=== PATIENT | female | born 1955 | race Asian ===

== ENCOUNTER 2018-12-10 13:00 | Inpatient (IN) | payer MEDICARE ==
--- NOTE | 2018-12-10 13:09 | Emergency Department Report ---
Blank Doc - Documentation Documentation: This is a 63-year-old female that chest pain in the left side. Patient stated has history of breast cancer and had chemo and radiation to the left breast. Patient denies any radiation of pain. Denies URI symptoms. Exam: Left breast tissue erythema with tenderness noted. This initial assessment diagnostic orders/clinical plan/treatment(s) is/are subject to change based on patient's health status, clinical progression and re- assessment by fellow clinical providers in the ED. Further treatment and workup at subsequent clinical providers discretion. Patient/guardians urged not to elope from ED s their condition may be serious if not clinically assessed and managed. Initial orders include: 1-EKG 2- Labs 3- Chest xray
[2018-12-10 13:28] LABS: Basophils % (Auto) 0.6 % (0.0-1.8); Eosinophils # (Auto) 0.1 K/mm3 (0.0-0.4); Eosinophils % (Auto) 1.1 % (0.0-4.3); Hematocrit 45.3 % (30.3-42.9); Hemoglobin 15.2 gm/dl (10.1-14.3); Lymphocytes # (Auto) 2.5 K/mm3 (1.2-5.4); Lymphocytes % (Auto) 40.5 % (13.4-35.0); Mean Corpuscular HGB Conc 34 % (30-34); Mean Corpuscular Volume 96 fl (79-97); Monocytes # (Auto) 0.3 K/mm3 (0.0-0.8); Monocytes % (Auto) 5.4 % (0.0-7.3); Platelet Count 274 K/mm3 (140-440); Red Blood Count 4.72 M/mm3 (3.65-5.03); Red Cell Distribution Width 13.2 % (13.2-15.2)
[2018-12-10 13:38] LABS: INR 0.83 (0.87-1.13)
[2018-12-10 13:39] LABS: Partial Thromboplastin Time 22.9 Sec. (24.2-36.6)
[2018-12-10 13:51] LABS: Alanine Aminotransferase 13 units/L (7-56); Albumin 4.2 g/dL (3.9-5); BUN/Creatinine Ratio 17; Blood Urea Nitrogen 12 mg/dL (7-17); Calcium 9.9 mg/dL (8.4-10.2); Hemolysis Index 23
--- NOTE | 2018-12-10 14:05 | XRay Report ---
FINAL REPORT EXAM: XRAY CHEST 2 VIEWS HISTORY: CP TECHNIQUE: Frontal and lateral chest radiographs. PRIORS: None. FINDINGS: Atherosclerotic calculi are seen in the thoracic aorta. The cardiomediastinal silhouette is normal. No focal consolidation. No pleural effusion. No pneumothorax. No acute osseous abnormality. IMPRESSION: No acute cardiopulmonary process.
--- NOTE | 2018-12-10 18:02 | Emergency Department Report ---
ED Chest Pain HPI - General Chief Complaint: Chest Pain Stated Complaint: CHEST PAIN Time Seen by Provider: 12/10/18 13:03 Source: patient Mode of arrival: Ambulatory Limitations: No Limitations - History of Present Illness MD Complaint: chest pain -: Gradual Onset: during rest Pain Location: left chest Pain Radiation: none Severity: severe Severity scale (0 -10): 10 Quality: sharp Consistency: constant Improves With: nothing Worsens With: nothing re: denies: nausea, vomting Other Symptoms: denies: cough Treatments Prior to Arrival: none Aspirin use within the Past 7 Days: (0) No - Related Data On Oral Contraceptives: No Home Medications Medication Instructions Recorded Confirmed Last Taken No Known Home Medications [No 12/11/18 12/11/18 Unknown Reported Home Medications] Allergies Allergy/AdvReac Type Severity Reaction Status Date / Time No Known Allergies Allergy Verified 12/10/18 13:01 Heart Score - HEART Score History: Slightly suspicious EKG: Normal Age: 45-65 Risk factors: 1-2 risk factors Troponin: < normal limit HEART Score: 2 - Critical Actions Critical Actions: 0-3 pts:0.9-1.7%risk of adverse cardiac event.Candidate for discharge ED Review of Systems ROS: Stated complaint: CHEST PAIN Other details as noted in HPI Comment: All other systems reviewed and negative Constitutional: denies: chills, fever Eyes: denies: eye pain, eye discharge, vision change ENT: denies: ear pain, throat pain Respiratory: denies: cough, shortness of breath, wheezing Cardiovascular: chest pain. denies: palpitations Endocrine: no symptoms reported Gastrointestinal: denies: abdominal pain, nausea, diarrhea Genitourinary: denies: urgency, dysuria, discharge Musculoskeletal: denies: back pain, joint swelling, arthralgia Skin: denies: rash, lesions Neurological: denies: headache, weakness, paresthesias Psychiatric: denies: anxiety, depression Hematological/Lymphatic: denies: easy bleeding, easy bruising ED Past Medical Hx - Past Medical History Hx Diabetes: Yes Additional medical history: left breast lumpectomy with chemo and radiation-2000 - Surgical History Additional Surgical History: left breast,bladder - Social History Smoking Status: Current Every Day Smoker Substance Use Type: None - Medications Home Medications: Home Medications Medication Instructions Recorded Confirmed Last Taken Type No Known Home Medications [No 12/11/18 12/11/18 Unknown History Reported Home Medications] ED Physical Exam - General Limitations: No Limitations General appearance: alert, in no apparent distress - Head Head exam: Present: atraumatic, normocephalic - Eye Eye exam: Present: normal appearance, PERRL, EOMI Pupils: Present: normal accommodation - ENT ENT exam: Present: normal exam, normal orophraynx, mucous membranes moist - Neck Neck exam: Present: normal inspection, full ROM. Absent: tenderness - Respiratory Respiratory exam: Present: normal lung sounds bilaterally. Absent: respiratory distress, wheezes - Cardiovascular Cardiovascular Exam: Present: regular rate, normal rhythm, other (Left breast mass with orange skin appearance and redness which is indurated and tender to palpation.). Absent: systolic murmur, diastolic murmur, rubs, gallop - GI/Abdominal GI/Abdominal exam: Present: soft, normal bowel sounds. Absent: distended, tenderness, guarding - Extremities Exam Extremities exam: Present: normal inspection, full ROM, normal capillary refill - Back Exam Back exam: Present: normal inspection, full ROM. Absent: tenderness - Neurological Exam Neurological exam: Present: alert, oriented X3, CN II-XII intact - Psychiatric Psychiatric exam: Present: normal affect, normal mood - Skin Skin exam: Present: warm, dry, intact, normal color. Absent: rash ED Course Vital Signs 12/10/18 12/10/18 12/10/18 13:08 18:18 18:22 Temperature 98 F Pulse Rate 111 H 91 H Respiratory 20 22 18 Rate Blood Pressure 185/74 O2 Sat by Pulse 94 96 Oximetry 12/10/18 12/10/18 12/10/18 18:30 19:40 21:02 Temperature Pulse Rate 80 Respiratory 15 16 Rate Blood Pressure 118/65 118/65 O2 Sat by Pulse 98 98 98 Oximetry 12/10/18 12/10/18 12/10/18 21:16 21:20 21:30 Temperature Pulse Rate 69 68 61 Respiratory 14 10 L 15 Rate Blood Pressure 146/52 146/52 146/52 O2 Sat by Pulse 97 96 96 Oximetry 12/10/18 12/10/18 21:40 21:56 Temperature Pulse Rate 79 Respiratory 14 Rate Blood Pressure 143/57 O2 Sat by Pulse 96 97 Oximetry - Consultations Consultation #1: 12/11/18 02:14 Dr Bouchra Pierce to admit patient for further management. JUSTIN score - Justin Score Age > 65: (0) No Aspirin use within the Past 7 Days: (0) No 3 or more CAD Risk Factors: (0) No 2 or more Angina events in past 24 hrs: (0) No Known CAD with more than 50% Stenosis: (0) No Elevated Cardiac Markers: (0) No ST Deviation Greater than 0.5mm: (0) No JUSTIN Score: 0 ED Medical Decision Making - Lab Data Result diagrams: 12/10/18 21:08 12/10/18 21:08 Lab Results 12/10/18 12/10/18 12/10/18 Range/Units 13:14 13:14 13:14 WBC 6.3 (4.5-11.0) K/mm3 RBC 4.72 (3.65-5.03) M/mm3 Hgb 15.2 H (10.1-14.3) gm/dl Hct 45.3 H (30.3-42.9) % MCV 96 (79-97) fl MCH 32 (28-32) pg MCHC 34 (30-34) % RDW 13.2 (13.2-15.2) % Plt Count 274 (140-440) K/mm3 Lymph % (Auto) 40.5 H (13.4-35.0) % [place] % (Auto) 5.4 (0.0-7.3) % Eos % (Auto) 1.1 (0.0-4.3) % Baso % (Auto) 0.6 (0.0-1.8) % Lymph # 2.5 (1.2-5.4) K/mm3 [place] # 0.3 (0.0-0.8) K/mm3 Eos # 0.1 (0.0-0.4) K/mm3 Baso # 0.0 (0.0-0.1) K/mm3 Seg Neutrophils % 52.4 (40.0-70.0) % Seg Neutrophils # 3.3 (1.8-7.7) K/mm3 PT 11.8 L (12.2-14.9) Sec. INR 0.83 L (0.87-1.13) APTT 22.9 L (24.2-36.6) Sec. Sodium 136 L (137-145) mmol/L Potassium 4.4 (3.6-5.0) mmol/L Chloride 97.6 L (98-107) mmol/L Carbon Dioxide 25 (22-30) mmol/L Anion Gap 18 mmol/L BUN 12 (7-17) mg/dL Creatinine 0.7 (0.7-1.2) mg/dL Estimated GFR > 60 ml/min BUN/Creatinine Ratio 17 % Glucose 412 H (65-100) mg/dL Calcium 9.9 (8.4-10.2) mg/dL Total Bilirubin 0.30 (0.1-1.2) mg/dL AST 11 (5-40) units/L ALT 13 (7-56) units/L Alkaline Phosphatase 67 (35-129) units/L Troponin T < 0.010 (0.00-0.029) ng/mL Total Protein 7.1 (6.3-8.2) g/dL Albumin 4.2 (3.9-5) g/dL Albumin/Globulin Ratio 1.4 % 12/10/18 Range/Units 16:06 WBC (4.5-11.0) K/mm3 RBC (3.65-5.03) M/mm3 Hgb (10.1-14.3) gm/dl Hct (30.3-42.9) % MCV (79-97) fl MCH (28-32) pg MCHC (30-34) % RDW (13.2-15.2) % Plt Count (140-440) K/mm3 Lymph % (Auto) (13.4-35.0) % [place] % (Auto) (0.0-7.3) % Eos % (Auto) (0.0-4.3) % Baso % (Auto) (0.0-1.8) % Lymph # (1.2-5.4) K/mm3 [place] # (0.0-0.8) K/mm3 Eos # (0.0-0.4) K/mm3 Baso # (0.0-0.1) K/mm3 Seg Neutrophils % (40.0-70.0) % Seg Neutrophils # (1.8-7.7) K/mm3 PT (12.2-14.9) Sec. INR (0.87-1.13) APTT (24.2-36.6) Sec. Sodium (137-145) mmol/L Potassium (3.6-5.0) mmol/L Chloride (98-107) mmol/L Carbon Dioxide (22-30) mmol/L Anion Gap mmol/L BUN (7-17) mg/dL Creatinine (0.7-1.2) mg/dL Estimated GFR ml/min BUN/Creatinine Ratio % Glucose (65-100) mg/dL Calcium (8.4-10.2) mg/dL Total Bilirubin (0.1-1.2) mg/dL AST (5-40) units/L ALT (7-56) units/L Alkaline Phosphatase (35-129) units/L Troponin T < 0.010 (0.00-0.029) ng/mL Total Protein (6.3-8.2) g/dL Albumin (3.9-5) g/dL Albumin/Globulin Ratio % - EKG Data -: EKG Interpreted by Co EKG shows normal: sinus rhythm Rate: tachycardia (101) - EKG Data When compared to previous EKG there are: previous EKG unavailable 12/10/18 18:28 No STEMI. - Radiology Data Radiology results: report reviewed, image reviewed CXR is negative. CTA chest with contrast showed No PE, abnormal left breast density suspicious for neoplasm. - Medical Decision Making Chest Pain. Possible Left Breast Cancer. Critical care attestation.: If time is entered above; I have spent that time in minutes in the direct care of this critically ill patient, excluding procedure time. ED Disposition Clinical Impression: Breast mass, left Chest pain Qualifiers: Chest pain type: unspecified Qualified Code(s): R07.9 - Chest pain, unspecified Uncontrolled diabetes mellitus Qualifiers: Diabetes mellitus type: type 2 Glycemic state: with hyperglycemia Qualified Code(s): E11.65 - Type 2 diabetes mellitus with hyperglycemia Disposition: DC-09 OP ADMIT IP TO THIS HOSP Is pt being admited?: Yes Does the pt Need Aspirin: Yes Condition: Stable Time of Disposition: 21:10
[2018-12-10] MEDS ORDERED: NACL 0.9% 1000 ML 1,000 ML IV ONE ×2 (18:04)
[2018-12-10] MEDS ORDERED: HumuLIN R IV ONE (18:04)
[2018-12-10] MEDS ORDERED: ZOFRAN IV ONE (18:05)
[2018-12-10] MEDS ORDERED: MORPHINE ONE (18:14)
[2018-12-10] MEDS ORDERED: MORPHINE IV ONE (18:15)
[2018-12-10] MEDS ORDERED: BABY ASPIRIN PO ONE (19:10)
--- NOTE | 2018-12-10 19:13 | Cat Scan Report ---
FINAL REPORT PROCEDURE: CT ANGIO CHEST TECHNIQUE: Computerized tomographic angiography of the chest was performed during the IV injection o f iodinated nonionic contrast including image processing. The image data was postprocessed using 2-di mensional multiplanar reformatted (MPR) and 3-dimensional (MIP and/or volume rendered) techniques. HISTORY: Chest pain COMPARISON: No prior studies are available for comparison. FINDINGS: Pulmonary outflow tract, right and left main pulmonary arteries and their proximal branches: Clear, n o filling defects seen to suggest pulmonary embolus. Pericardium: No evidence of pericardial effusion. Thoracic aorta: No evidence of aneurysmal dilatation or dissection. Coronary arteries: Are partially calcified indicating atherosclerotic disease. Mediastinum and hilar regions: Nonspecific subcentimeter lymph nodes are visualized. No pathologicall y enlarged lymph nodes or masses are identified. Lung [place]: There is minimal dependent atelectasis. Lungs otherwise are clear. Upper abdomen: No acute or focal abnormality is seeen. Other: Abnormal noncalcified soft tissue density is visualized in the left breast. This has irregular margins and extends over approximately 5.8 x 3.4 centimeters. Skin thickening and subcutaneous edema is visualized. IMPRESSION: Abnormal density visualized in the left breast as described. Malignancy in the left breast needs to b e excluded. Mastoiditis could present this manner. Correlation with mammography, clinical presentatio n and physical exam is recommended. No evidence of pulmonary embolus. Atherosclerosis coronary arteries.
[2018-12-10] MEDS ORDERED: HABITROL TD ONE (20:30)
[2018-12-10] MEDS ORDERED: SODIUM CHLORIDE FLUSH SYRINGE 10 ML IV PRN ×2 (20:47)
[2018-12-10] MEDS ORDERED: NITROSTAT SL PRN (20:47)
[2018-12-10] MEDS ORDERED: ZOFRAN IV PRN (20:47)
[2018-12-10 21:24] LABS: Basophils # (Auto) 0.1 K/mm3 (0.0-0.1); Basophils % (Auto) 0.9 % (0.0-1.8); Eosinophils # (Auto) 0.1 K/mm3 (0.0-0.4); Eosinophils % (Auto) 2.6 % (0.0-4.3); Hematocrit 42.2 % (30.3-42.9); Lymphocytes % (Auto) 51.5 % (13.4-35.0); Mean Corpuscular HGB Conc 33 % (30-34); Mean Corpuscular Volume 97 fl (79-97); Monocytes # (Auto) 0.4 K/mm3 (0.0-0.8); Monocytes % (Auto) 6.4 % (0.0-7.3); Platelet Count 284 K/mm3 (140-440); Red Blood Count 4.37 M/mm3 (3.65-5.03); Red Cell Distribution Width 13.4 % (13.2-15.2)
[2018-12-10 21:34] LABS: BUN/Creatinine Ratio 20; Blood Urea Nitrogen 16 mg/dL (7-17); Calcium 9.3 mg/dL (8.4-10.2); Chol/HDL Ratio 6.18 %; Hemolysis Index 7
[2018-12-10] MEDS: SODIUM CHLORIDE FLUSH SYRINGE 10 ML IV SCH (22:34)
[2018-12-10] MEDS ORDERED: AMBIEN PO PRN (23:13)
--- NOTE | 2018-12-10 23:21 | History and Physical Report ---
<BIJAN NEVILLE - Last Filed: 12/11/18 03:17> History of Present Illness Date of examination: 12/10/18 Date of admission: 12/10/18 20:47 Chief complaint: Left breast CA, chest pain History of present illness: Pt is a 63 year old female with past medical history of uncontrolled DM type II, hypertension, left breast cancer status post radiation/chemotherapy diagnosed more than 5 years ago. Patient presents to the ER complaining of left-sided chest pain, she described the pain as a nagging pain in her left breast, the pain radiates to the left arm at times, causing numbness and tingling, she denies any shortness of breath, denies palpitation, denies diaphoresis, denies prior chest pain. Patient states that she was diagnosed with breast cancer more than 5 years ago, she completed chemo and radiation therapy and decided to go "natural", she had not seen an oncologist nor had she is seen in primary care physician for more than 5 years. Patient states that she has been using natural medicine to take care of her cancer and her diabetes, she had not take any medications. In the ER her blood sugar was greater than 300, she had a CT scan of the chest which showed abnormal density in the left breast r/o malignancy or mastoiditis, EKG showed no STEMI criteria, cardiac enzymes were negative, patient is admitted to rule out ACS and for further evaluation of her left breast. Past History Past Medical History: cancer, diabetes Past Surgical History: No surgical history, Other Social history: Lives alone, smoking (1 pack daily), alcohol abuse (occasionally) Family history: no significant family history Medications and Allergies Allergies Allergy/AdvReac Type Severity Reaction Status Date / Time No Known Allergies Allergy Verified 12/10/18 13:01 Home Medications Medication Instructions Recorded Confirmed Last Taken Type AtorvaSTATin [Lipitor] 40 mg PO QHS #30 tab 12/11/18 Unknown Rx Clindamycin [Clindamycin CAP] 300 mg PO Q8H #30 cap 12/11/18 Unknown Rx Famotidine [Pepcid] 20 mg PO BID #30 tablet 12/11/18 Unknown Rx RX: Nicotine [Habitrol] 14 mg TD DAILY #30 patch 12/11/18 Unknown Rx Active Meds: Active Medications Acetaminophen (Tylenol) 650 mg PO Q4H PRN PRN Reason: Pain MILD(1-3)/Fever >100.5/[facility] Aspirin (Ecotrin) 325 mg PO QDAY [facility] Nitroglycerin (Nitrostat) 0.4 mg SL Q5M PRN PRN Reason: Chest Pain Ondansetron HCl (Zofran) 4 mg IV Q8H PRN PRN Reason: Nausea And Vomiting Sodium Chloride (Sodium Chloride Flush Syringe 10 Ml) 10 ml IV BID [facility] Last Admin: 12/10/18 22:34 Dose: 10 ml Documented by: Sodium Chloride (Sodium Chloride Flush Syringe 10 Ml) 10 ml IV PRN PRN PRN Reason: LINE FLUSH Review of Systems Breasts: deferred Cardiovascular: chest pain Exam - Constitutional Vitals: Temp Pulse Resp BP Pulse Ox 98 F 69 14 146/52 97 12/10/18 13:08 12/10/18 21:16 12/10/18 21:16 12/10/18 21:16 12/10/18 21:56 General appearance: Present: no acute distress - EENT Eyes: Present: EOM intact ENT: hearing intact - Neck Neck: Present: supple, normal ROM - Respiratory Respiratory effort: normal Respiratory: bilateral: CTA - Cardiovascular Rhythm: regular Heart Sounds: Present: S1 & S2 - Extremities Extremities: no ischemia Peripheral Pulses: within normal limits - Abdominal General gastrointestinal: Present: deferred Female genitourinary: Present: deferred - Rectal Rectal Exam: deferred - Integumentary Integumentary: Present: clear, warm - Psychiatric Psychiatric: appropriate mood/affect, cooperative - Neurologic Neurologic: moves all extremities Results - Labs CBC & Chem 7: 12/10/18 21:08 12/10/18 21:08 Labs: Laboratory Last Values WBC 5.7 K/mm3 (4.5-11.0) 12/10/18 21:08 RBC 4.37 M/mm3 (3.65-5.03) 12/10/18 21:08 Hgb 14.0 gm/dl (10.1-14.3) 12/10/18 21:08 Hct 42.2 % (30.3-42.9) 12/10/18 21:08 MCV 97 fl (79-97) 12/10/18 21:08 MCH 32 pg (28-32) 12/10/18 21:08 MCHC 33 % (30-34) 12/10/18 21:08 RDW 13.4 % (13.2-15.2) 12/10/18 21:08 Plt Count 284 K/mm3 (140-440) 12/10/18 21:08 Lymph % (Auto) 51.5 % (13.4-35.0) H 12/10/18 21:08 [place] % (Auto) 6.4 % (0.0-7.3) 12/10/18 21:08 Eos % (Auto) 2.6 % (0.0-4.3) 12/10/18 21:08 Baso % (Auto) 0.9 % (0.0-1.8) 12/10/18 21:08 Lymph # 3.0 K/mm3 (1.2-5.4) 12/10/18 21:08 [place] # 0.4 K/mm3 (0.0-0.8) 12/10/18 21:08 Eos # 0.1 K/mm3 (0.0-0.4) 12/10/18 21:08 Baso # 0.1 K/mm3 (0.0-0.1) 12/10/18 21:08 Seg Neutrophils % 38.6 % (40.0-70.0) L 12/10/18 21:08 Seg Neutrophils # 2.2 K/mm3 (1.8-7.7) 12/10/18 21:08 PT 11.8 Sec. (12.2-14.9) L 12/10/18 13:14 INR 0.83 (0.87-1.13) L 12/10/18 13:14 APTT 22.9 Sec. (24.2-36.6) L 12/10/18 13:14 VBG pH 7.413 (7.320-7.420) 12/10/18 18:28 Sodium 135 mmol/L (137-145) L 12/10/18 21:08 Potassium 4.2 mmol/L (3.6-5.0) 12/10/18 21:08 Chloride 101.6 mmol/L (98-107) 12/10/18 21:08 Carbon Dioxide 21 mmol/L (22-30) L 12/10/18 21:08 Anion Gap 17 mmol/L 12/10/18 21:08 BUN 16 mg/dL (7-17) 12/10/18 21:08 Creatinine 0.8 mg/dL (0.7-1.2) 12/10/18 21:08 Estimated GFR > 60 ml/min 12/10/18 21:08 BUN/Creatinine Ratio 20 % 12/10/18 21:08 Glucose 274 mg/dL (65-100) H 12/10/18 21:08 Calcium 9.3 mg/dL (8.4-10.2) 12/10/18 21:08 Total Bilirubin 0.30 mg/dL (0.1-1.2) 12/10/18 13:14 AST 11 units/L (5-40) 12/10/18 13:14 ALT 13 units/L (7-56) 12/10/18 13:14 Alkaline Phosphatase 67 units/L (35-129) 12/10/18 13:14 Troponin T < 0.010 ng/mL (0.00-0.029) 12/10/18 16:06 Total Protein 7.1 g/dL (6.3-8.2) 12/10/18 13:14 Albumin 4.2 g/dL (3.9-5) 12/10/18 13:14 Albumin/Globulin Ratio 1.4 % 12/10/18 13:14 Triglycerides 155 mg/dL (2-149) H 12/10/18 21:08 Cholesterol 235 mg/dL (50-199) H 12/10/18 21:08 LDL Cholesterol Direct 190 mg/dL (50-130) H 12/10/18 21:08 HDL Cholesterol 38 mg/dL (40-59) L 12/10/18 21:08 Cholesterol/HDL Ratio 6.18 % 12/10/18 21:08 Assessment and Plan Assessment and plan: 1. Chest pain rule out ACS 2. History of Left breast malignancy (abnormal density, r/o recurrence) 3. Uncontrolled DM type II 4. Hypercholesterolemia 5. Hypertension 6. Obesity Plan: Patient is admitted to [facility] telemetry for chest pain Rule out recurrence of left breast cancer Cardiac enzymes every 6 hours 2 more Repeat EKG with chest pain Monitor cardiac rhythm/vital signs Glycemic management with insulin per sliding scale Start statin for hypercholesterolemia Consult oncology for management of left breast CA Stress test in the a.m. Further plan per hospital course Plan discussed with patient, voiced understanding Patient's condition and plan of care discussed with Dr. Pierce Advance Directives: Yes VTE prophylaxis?: Mechanical Plan of care discussed with patient/family: Yes <LIZET PIERCE - Last Filed: 12/21/18 06:51> History of Present Illness Date of admission: 12/10/18 20:47 Medications and Allergies Active Meds: Active Medications Acetaminophen (Tylenol) 650 mg PO Q4H PRN PRN Reason: Pain MILD(1-3)/Fever >100.5/[facility] Last Admin: 12/10/18 23:45 Dose: 650 mg Documented by: Aspirin (Ecotrin) 325 mg PO QDAY [facility] Atorvastatin Calcium (Lipitor) 20 mg PO QHS [facility] Nitroglycerin (Nitrostat) 0.4 mg SL Q5M PRN PRN Reason: Chest Pain Ondansetron HCl (Zofran) 4 mg IV Q8H PRN PRN Reason: Nausea And Vomiting Sodium Chloride (Sodium Chloride Flush Syringe 10 Ml) 10 ml IV BID [facility] Last Admin: 12/10/18 22:34 Dose: 10 ml Documented by: Sodium Chloride (Sodium Chloride Flush Syringe 10 Ml) 10 ml IV PRN PRN PRN Reason: LINE FLUSH Zolpidem Tartrate (Ambien) 5 mg PO QHS PRN PRN Reason: Sleep Last Admin: 12/10/18 23:45 Dose: 5 mg Documented by: Exam - Constitutional Vitals: Temp Pulse Resp BP Pulse Ox 98.0 F 82 20 136/61 98 12/10/18 22:53 12/10/18 22:53 12/10/18 22:53 12/10/18 22:53 12/10/18 22:53 Results - Labs CBC & Chem 7: 12/11/18 06:09 12/11/18 06:09 Labs: Laboratory Last Values WBC 5.7 K/mm3 (4.5-11.0) 12/10/18 21:08 RBC 4.37 M/mm3 (3.65-5.03) 12/10/18 21:08 Hgb 14.0 gm/dl (10.1-14.3) 12/10/18 21:08 Hct 42.2 % (30.3-42.9) 12/10/18 21:08 MCV 97 fl (79-97) 12/10/18 21:08 MCH 32 pg (28-32) 12/10/18 21:08 MCHC 33 % (30-34) 12/10/18 21:08 RDW 13.4 % (13.2-15.2) 12/10/18 21:08 Plt Count 284 K/mm3 (140-440) 12/10/18 21:08 Lymph % (Auto) 51.5 % (13.4-35.0) H 12/10/18 21:08 [place] % (Auto) 6.4 % (0.0-7.3) 12/10/18 21:08 Eos % (Auto) 2.6 % (0.0-4.3) 12/10/18 21:08 Baso % (Auto) 0.9 % (0.0-1.8) 12/10/18 21:08 Lymph # 3.0 K/mm3 (1.2-5.4) 12/10/18 21:08 [place] # 0.4 K/mm3 (0.0-0.8) 12/10/18 21:08 Eos # 0.1 K/mm3 (0.0-0.4) 12/10/18 21:08 Baso # 0.1 K/mm3 (0.0-0.1) 12/10/18 21:08 Seg Neutrophils % 38.6 % (40.0-70.0) L 12/10/18 21:08 Seg Neutrophils # 2.2 K/mm3 (1.8-7.7) 12/10/18 21:08 PT 11.8 Sec. (12.2-14.9) L 12/10/18 13:14 INR 0.83 (0.87-1.13) L 12/10/18 13:14 APTT 22.9 Sec. (24.2-36.6) L 12/10/18 13:14 VBG pH 7.413 (7.320-7.420) 12/10/18 18:28 Sodium 135 mmol/L (137-145) L 12/10/18 21:08 Potassium 4.2 mmol/L (3.6-5.0) 12/10/18 21:08 Chloride 101.6 mmol/L (98-107) 12/10/18 21:08 Carbon Dioxide 21 mmol/L (22-30) L 12/10/18 21:08 Anion Gap 17 mmol/L 12/10/18 21:08 BUN 16 mg/dL (7-17) 12/10/18 21:08 Creatinine 0.8 mg/dL (0.7-1.2) 12/10/18 21:08 Estimated GFR > 60 ml/min 12/10/18 21:08 BUN/Creatinine Ratio 20 % 12/10/18 21:08 Glucose 274 mg/dL (65-100) H 12/10/18 21:08 Calcium 9.3 mg/dL (8.4-10.2) 12/10/18 21:08 Total Bilirubin 0.30 mg/dL (0.1-1.2) 12/10/18 13:14 AST 11 units/L (5-40) 12/10/18 13:14 ALT 13 units/L (7-56) 12/10/18 13:14 Alkaline Phosphatase 67 units/L (35-129) 12/10/18 13:14 Troponin T < 0.010 ng/mL (0.00-0.029) 12/10/18 16:06 Total Protein 7.1 g/dL (6.3-8.2) 12/10/18 13:14 Albumin 4.2 g/dL (3.9-5) 12/10/18 13:14 Albumin/Globulin Ratio 1.4 % 12/10/18 13:14 Triglycerides 155 mg/dL (2-149) H 12/10/18 21:08 Cholesterol 235 mg/dL (50-199) H 12/10/18 21:08 LDL Cholesterol Direct 190 mg/dL (50-130) H 12/10/18 21:08 HDL Cholesterol 38 mg/dL (40-59) L 12/10/18 21:08 Cholesterol/HDL Ratio 6.18 % 12/10/18 21:08 Assessment and Plan Assessment and plan: 63-year-old woman with a history of diabetes, breast cancer, status post lump ectomy, radiation, chemotherapy plus emergency room with complaints of left- sided chest pain. Patient states she knows changes in the skin of her breast in October of last year however she has not followed up with her primary care and oncologist in the last 4 years. Physical exam is significant for thickened skin of the left breast, a lump from 12 to 2:00 counterclockwise. Chest pain is most likely secondary to the mass in her breast. consult oncology, IV morphine, check cardiac enzymes. Patient seen and examined with nurse practitioner
[2018-12-10] MEDS: TYLENOL PO PRN (23:45)
[2018-12-11 06:28] LABS: Hematocrit 40.6 % (30.3-42.9); Hemoglobin 13.4 gm/dl (10.1-14.3); Mean Corpuscular HGB Conc 33 % (30-34); Mean Corpuscular Volume 96 fl (79-97); Platelet Count 251 K/mm3 (140-440); Red Blood Count 4.24 M/mm3 (3.65-5.03); Red Cell Distribution Width 12.9 % (13.2-15.2)
[2018-12-11 06:44] LABS: BUN/Creatinine Ratio 20; Blood Urea Nitrogen 12 mg/dL (7-17); Calcium 9.1 mg/dL (8.4-10.2); Hemolysis Index 9
[2018-12-11] MEDS: TYLENOL PO PRN (07:08)
[2018-12-11 07:41] LABS: Anisocytosis 1+; Total Cells Counted 100
[2018-12-11] MEDS ORDERED: LEXISCAN IV ONE ×2 (09:31→09:32)
[2018-12-11] MEDS ORDERED: ECOTRIN PO SCH (10:00)
--- NOTE | 2018-12-11 10:21 | Progress Note ---
History Interval history: Patient went for stress test Hospitalist Physical - Constitutional Vitals: Temp Pulse Resp BP Pulse Ox 98.0 F 82 20 136/61 98 12/10/18 22:53 12/10/18 22:53 12/10/18 22:53 12/10/18 22:53 12/10/18 22:53 General appearance: Present: no acute distress Results - Labs CBC & Chem 7: 12/11/18 06:09 12/11/18 06:09 Labs: Laboratory Last Values WBC 4.9 K/mm3 (4.5-11.0) 12/11/18 06:09 RBC 4.24 M/mm3 (3.65-5.03) 12/11/18 06:09 Hgb 13.4 gm/dl (10.1-14.3) 12/11/18 06:09 Hct 40.6 % (30.3-42.9) 12/11/18 06:09 MCV 96 fl (79-97) 12/11/18 06:09 MCH 32 pg (28-32) 12/11/18 06:09 MCHC 33 % (30-34) 12/11/18 06:09 RDW 12.9 % (13.2-15.2) L 12/11/18 06:09 Plt Count 251 K/mm3 (140-440) 12/11/18 06:09 Lymph % (Auto) Performance Consultant 12/11/18 06:09 Noble % (Auto) 6.4 % (0.0-7.3) 12/10/18 21:08 Eos % (Auto) 2.6 % (0.0-4.3) 12/10/18 21:08 Baso % (Auto) 0.9 % (0.0-1.8) 12/10/18 21:08 Lymph # 3.0 K/mm3 (1.2-5.4) 12/10/18 21:08 Noble # 0.4 K/mm3 (0.0-0.8) 12/10/18 21:08 Eos # 0.1 K/mm3 (0.0-0.4) 12/10/18 21:08 Baso # 0.1 K/mm3 (0.0-0.1) 12/10/18 21:08 Add Manual Diff Complete 12/11/18 06:09 Total Counted 100 12/11/18 06:09 Seg Neutrophils % Performance Consultant 12/11/18 06:09 Seg Neuts % (Manual) 31.0 % (40.0-70.0) L 12/11/18 06:09 Band Neutrophils % 0 % 12/11/18 06:09 Lymphocytes % (Manual) 53.0 % (13.4-35.0) H 12/11/18 06:09 Reactive Lymphs % (Man) 0 % 12/11/18 06:09 Monocytes % (Manual) 11.0 % (0.0-7.3) H 12/11/18 06:09 Eosinophils % (Manual) 4.0 % (0.0-4.3) 12/11/18 06:09 Basophils % (Manual) 1.0 % (0.0-1.8) 12/11/18 06:09 Metamyelocytes % 0 % 12/11/18 06:09 Myelocytes % 0 % 12/11/18 06:09 Promyelocytes % 0 % 12/11/18 06:09 Blast Cells % 0 % 12/11/18 06:09 Nucleated RBC % Not Reportable 12/11/18 06:09 Seg Neutrophils # 2.2 K/mm3 (1.8-7.7) 12/10/18 21:08 Seg Neutrophils # Man 1.5 K/mm3 (1.8-7.7) L 12/11/18 06:09 Band Neutrophils # 0.0 K/mm3 12/11/18 06:09 Lymphocytes # (Manual) 2.6 K/mm3 (1.2-5.4) 12/11/18 06:09 Abs React Lymphs (Man) 0.0 K/mm3 12/11/18 06:09 Monocytes # (Manual) 0.5 K/mm3 (0.0-0.8) 12/11/18 06:09 Eosinophils # (Manual) 0.2 K/mm3 (0.0-0.4) 12/11/18 06:09 Basophils # (Manual) 0.0 K/mm3 (0.0-0.1) 12/11/18 06:09 Metamyelocytes # 0.0 K/mm3 12/11/18 06:09 Myelocytes # 0.0 K/mm3 12/11/18 06:09 Promyelocytes # 0.0 K/mm3 12/11/18 06:09 Blast Cells # 0.0 K/mm3 12/11/18 06:09 WBC Morphology Not Reportable 12/11/18 06:09 Hypersegmented Neuts Not Reportable 12/11/18 06:09 Hyposegmented Neuts Not Reportable 12/11/18 06:09 Hypogranular Neuts Not Reportable 12/11/18 06:09 Smudge Cells Not Reportable 12/11/18 06:09 Toxic Granulation Not Reportable 12/11/18 06:09 Toxic Vacuolation Not Reportable 12/11/18 06:09 Dohle Bodies Not Reportable 12/11/18 06:09 Pelger-Huet Anomaly Not Reportable 12/11/18 06:09 Kimberley Rods Not Reportable 12/11/18 06:09 Platelet Estimate Appears normal 12/11/18 06:09 Clumped Platelets Not Reportable 12/11/18 06:09 Plt Clumps, EDTA Not Reportable 12/11/18 06:09 Large Platelets Not Reportable 12/11/18 06:09 Giant Platelets Not Reportable 12/11/18 06:09 Platelet Satelliting Not Reportable 12/11/18 06:09 Plt Morphology Comment Not Reportable 12/11/18 06:09 RBC Morphology Not Reportable 12/11/18 06:09 Dimorphic RBCs Not Reportable 12/11/18 06:09 Polychromasia Not Reportable 12/11/18 06:09 Hypochromasia Not Reportable 12/11/18 06:09 Poikilocytosis Not Reportable 12/11/18 06:09 Anisocytosis 1+ 12/11/18 06:09 Microcytosis Not Reportable 12/11/18 06:09 Macrocytosis Not Reportable 12/11/18 06:09 Spherocytes Not Reportable 12/11/18 06:09 Pappenheimer Bodies Not Reportable 12/11/18 06:09 Sickle Cells Not Reportable 12/11/18 06:09 Target Cells Not Reportable 12/11/18 06:09 Tear Drop Cells Not Reportable 12/11/18 06:09 Ovalocytes Not Reportable 12/11/18 06:09 Helmet Cells Not Reportable 12/11/18 06:09 [place] Bodies Not Reportable 12/11/18 06:09 [place] Rings Not Reportable 12/11/18 06:09 [place] Cells Not Reportable 12/11/18 06:09 Bite Cells Not Reportable 12/11/18 06:09 Crenated Cell Not Reportable 12/11/18 06:09 Elliptocytes Not Reportable 12/11/18 06:09 Acanthocytes (Spur) Not Reportable 12/11/18 06:09 Rouleaux Not Reportable 12/11/18 06:09 Hemoglobin C Crystals Not Reportable 12/11/18 06:09 Schistocytes Not Reportable 12/11/18 06:09 Malaria parasites Not Reportable 12/11/18 06:09 [place] Bodies Not Reportable 12/11/18 06:09 Hem Pathologist Commnt No 12/11/18 06:09 PT 11.8 Sec. (12.2-14.9) L 12/10/18 13:14 INR 0.83 (0.87-1.13) L 12/10/18 13:14 APTT 22.9 Sec. (24.2-36.6) L 12/10/18 13:14 VBG pH 7.413 (7.320-7.420) 12/10/18 18:28 Sodium 138 mmol/L (137-145) 12/11/18 06:09 Potassium 4.2 mmol/L (3.6-5.0) 12/11/18 06:09 Chloride 103.6 mmol/L (98-107) 12/11/18 06:09 Carbon Dioxide 26 mmol/L (22-30) 12/11/18 06:09 Anion Gap 13 mmol/L 12/11/18 06:09 BUN 12 mg/dL (7-17) 12/11/18 06:09 Creatinine 0.6 mg/dL (0.7-1.2) L 12/11/18 06:09 Estimated GFR > 60 ml/min 12/11/18 06:09 BUN/Creatinine Ratio 20 % 12/11/18 06:09 Glucose 271 mg/dL (65-100) H 12/11/18 06:09 Calcium 9.1 mg/dL (8.4-10.2) 12/11/18 06:09 Total Bilirubin 0.30 mg/dL (0.1-1.2) 12/10/18 13:14 AST 11 units/L (5-40) 12/10/18 13:14 ALT 13 units/L (7-56) 12/10/18 13:14 Alkaline Phosphatase 67 units/L (35-129) 12/10/18 13:14 Troponin T < 0.010 ng/mL (0.00-0.029) 12/11/18 06:09 Total Protein 7.1 g/dL (6.3-8.2) 12/10/18 13:14 Albumin 4.2 g/dL (3.9-5) 12/10/18 13:14 Albumin/Globulin Ratio 1.4 % 12/10/18 13:14 Triglycerides 155 mg/dL (2-149) H 12/10/18 21:08 Cholesterol 235 mg/dL (50-199) H 12/10/18 21:08 LDL Cholesterol Direct 190 mg/dL (50-130) H 12/10/18 21:08 HDL Cholesterol 38 mg/dL (40-59) L 12/10/18 21:08 Cholesterol/HDL Ratio 6.18 % 12/10/18 21:08
[2018-12-11] MEDS: SODIUM CHLORIDE FLUSH SYRINGE 10 ML IV SCH (11:56)
[2018-12-11 12:45] VITALS: BP 127/55
--- NOTE | 2018-12-11 15:06 | Event Note ---
Date: 12/11/18 Pt underwent stress test this AM per [facility] which was negative. Cardiology consultation cancelled per Dr. Obrien, pt to be discharged home. Venkata KENNEY NP / DR. Luis Felipe DURON
--- NOTE | 2018-12-11 15:14 | Discharge Summary ---
Providers - Providers Date of Admission: 12/10/18 20:47 Date of discharge: 12/11/18 Attending physician: MYKE RODAS 12/10/18 Consult to Cardiac Rehabilitation [CONS] Routine Reason For Exam: Phase I 12/10/18 23:14 Consult to Physician [CONS] Routine Comment: Consulting Provider: DICKSON CAMARILLO Physician Instructions: Reason For Exam: Left breast ca Primary care physician: PIYUSH EARL Hospitalization Reason for admission: left chest pain Condition: Stable Pertinent studies: Chest x-ray; no acute abnormality CTA chest; no PE, abnormal noncalcified soft tissue density left breast irregular margins skin thickening subcutaneous edema[ patient was given follow-up with breast surgeon upon discharge] Stress test; normal perfusion scan, no ischemia, EF 67% Hospital course: 63-year-old female patient with significant history of uncontrolled diabetes mellitus hypertension left breast cancer status post radiation chemotherapy was admitted through emergency room with left-sided chest pain Patient was symptomatically managed subsequently underwent stress test which was negative for reversible ischemia and normal left ventricular function, Patient also had elevated d-dimer CT angiogram of the chest is negative for PE However old changes of breast cancer findings were noted, Patient was strongly advised to follow up with the surgeon upon discharge for further evaluation and management, Today she is comfortable in no new complaints vital signs stable physical examination unremarkable Patient is hemodynamically and clinically stable at discharge Discharge diagnosis; --Atypical chest pain; noncardiac, stress test negative --Gastroesophageal reflux disease; probably the cause of chest pain, Protonix --History of breast cancer; probably contributing to chest pain, followed with breast surgeon and oncology --Type 2 diabetes mellitus; diet controlled --Hypertension; stable --Dyslipidemia --Ongoing tobacco use/smoking cessation Patient is stable at discharge Disposition: [place]-01 TO HOME OR SELFCARE Time spent for discharge: 32 min Core Measure Documentation - Palliative Care Palliative Care/ Comfort Measures: Not Applicable - Core Measures Any of the following diagnoses?: none Exam - Constitutional Vitals: Temp Pulse Resp BP Pulse Ox 98.1 F 74 17 127/55 94 12/11/18 05:39 12/11/18 05:39 12/11/18 05:39 12/11/18 10:02 12/11/18 05:39 General appearance: Present: no acute distress, well-nourished - EENT Eyes: Present: PERRL, EOM intact - Neck Neck: Present: supple, normal ROM - Respiratory Respiratory effort: normal Respiratory: bilateral: diminished, negative: rales, rhonchi, wheezing - Cardiovascular Rhythm: regular Heart Sounds: Present: S1 & S2 - Extremities Extremities: no ischemia, pulses intact - Abdominal General gastrointestinal: Present: soft, non-tender, non-distended, normal bowel sounds - Integumentary Integumentary: Present: clear, warm - Musculoskeletal Musculoskeletal: strength equal bilaterally - Psychiatric Psychiatric: appropriate mood/affect, cooperative - Neurologic Neurologic: CNII-XII intact, moves all extremities Plan Activity: no restrictions Diet: low cholesterol Special Instructions: smoking cessation Additional Instructions: Advised smoking cessation. If you continue to have chest pain diminished to see x ray developer as outpatient Dr. Stan Rand. Advised to see breast surgeon Dr. Orozco in 1 week Follow up with: PIYUSH EARL MD [Primary Care Provider] - 3-5 Days REYNALDO LINARES MD [Staff Physician] - 7 Days DARCI OROZCO MD [Staff Physician] - 7 Days Prescriptions: AtorvaSTATin [Lipitor] 40 mg PO QHS #30 tab Clindamycin [Clindamycin CAP] 300 mg PO Q8H #30 cap Famotidine [Pepcid] 20 mg PO BID #30 tablet Nicotine [Habitrol] 14 mg TD DAILY #30 patch
--- NOTE | 2018-12-13 09:08 | Treadmill Report ---
STRESS TEST ORDERING PHYSICIAN: ____ INDICATION: Chest pain. FINDINGS: There is no scintigraphic evidence of myocardial ischemia. The left ventricle is normal in size and systolic function. The left ventricular ejection fraction is measured at 67%. Normal wall motion and wall thickening noted on gated imaging. CONCLUSION: Normal perfusion scan. JOB# [id number] HOLDEN/GARY
== END 2018-12-11 17:05 | disposition home or self-care (01) | DRG 313 ==
LOC: ED 13:00 → 4A 20:47
PROVIDERS: ADMIT Internal Medicine; ATTEND Internal Medicine
DX: R07.89 Other chest pain (principal); F17.200 Nicotine dependence, unspecified, uncomplicated; E11.65 Type 2 diabetes mellitus with hyperglycemia; I10 Essential (primary) hypertension; F10.10 Alcohol abuse, uncomplicated; Y90.0 Blood alcohol level of less than 20 mg/100 ml; F17.210 Nicotine dependence, cigarettes, uncomplicated; Z60.2 Problems related to living alone; E78.00 Pure hypercholesterolemia, unspecified; E66.9 Obesity, unspecified; Z85.3 Personal history of malignant neoplasm of breast; Z92.21 Personal history of antineoplastic chemotherapy; Z92.3 Personal history of irradiation; Z68.29 Body mass index [BMI] 29.0-29.9, adult; Z79.84 Long term (current) use of oral hypoglycemic drugs
CPT/HCPCS: 36415; 71046; 71275; 78452; 80048; 80053; 80061; 82805; 84484; 85007; 85025; 85610; 85730; 93005; 93010; 93017; 96361; 96374; 96375; 99285; G0378; A9502; J1815; J2270; J2405; J2785; J7030; Q9967

== ENCOUNTER 2019-07-27 19:47 | Emergency (ER) | payer MEDICARE ==
--- NOTE | 2019-07-27 20:30 | Event Note ---
ED Screening Note Date of service: 07/27/19 Time: 20:25 ED Screening Note: This is a 63 y.o. F. that presents to the ER with chest pain, weakness, and rash to left breast. PMH of DM2, HLD, and breast cancer left breast Patients states rash to left breast for 1 year. She is using natural medicine for DM and rash without improvement. Reports decreased appetite for 1 week. This initial assessment/diagnostic orders/clinical plan/treatment(s) is/are subject to change based on patients health status, clinical progression and re- assessment by fellow clinical providers in the ED. Further treatment and workup at subsequent clinical providers discretion. Patient/guardian urged not to elope from the ED as their condition may be serious if not clinically assessed and managed. Initial orders include: Labs Accucheck 257
[2019-07-27] MEDS ORDERED: ASPIRIN 325 MG TAB PO ONE (20:32)
--- NOTE | 2019-07-27 21:19 | XRay Report ---
CHEST 1 VIEW 07/27/2019 8:46 PM INDICATION / CLINICAL INFORMATION: Chest Pain. COMPARISON: 2 views of the chest from 12/10/2018. FINDINGS: SUPPORT DEVICES: None. HEART / MEDIASTINUM: Normal cardiac size with mild aortic atherosclerosis. LUNGS / PLEURA: No significant pulmonary or pleural abnormality. No pneumothorax. ADDITIONAL FINDINGS: No significant additional findings. IMPRESSION: No acute abnormality of the chest. Signer Name: Andrés Betts MD Signed: 07/27/2019 9:15 PM Workstation Name: [id number]
[2019-07-27 21:36] LABS: Basophils % (Auto) 0.4 % (0.0-1.8); Eosinophils # (Auto) 0.1 K/mm3 (0.0-0.4); Eosinophils % (Auto) 1.1 % (0.0-4.3); Hematocrit 43.3 % (30.3-42.9); Hemoglobin 14.2 gm/dl (10.1-14.3); Lymphocytes # (Auto) 2.5 K/mm3 (1.2-5.4); Lymphocytes % (Auto) 40.6 % (13.4-35.0); Mean Corpuscular HGB Conc 33 % (30-34); Mean Corpuscular Volume 97 fl (79-97); Monocytes # (Auto) 0.4 K/mm3 (0.0-0.8); Platelet Count 336 K/mm3 (140-440); Red Blood Count 4.48 M/mm3 (3.65-5.03); Red Cell Distribution Width 13.3 % (13.2-15.2)
[2019-07-27] MEDS ORDERED: SODIUM CHLORIDE 0.9% 1000 ML 1,000 ML IV ONE ×2 (21:44→22:16)
[2019-07-27] MEDS ORDERED: ONDANSETRON 4 MG/2 ML INJ IV ONE (21:44)
[2019-07-27] MEDS ORDERED: MORPHINE 4 MG/1 ML INJ IV ONE (21:44)
[2019-07-27] MEDS ORDERED: ALBUTEROL 2.5 MG/3 ML NEBU IH ONE (21:46)
--- NOTE | 2019-07-27 21:48 | Emergency Department Report ---
ED General Adult HPI - General Chief complaint: Chest Pain Stated complaint: CHEST PAIN,NUMBNESS,WEAKNESS Time Seen by Provider: 07/27/19 20:25 Source: patient, family, RN notes reviewed, old records reviewed Mode of arrival: Ambulatory Limitations: No Limitations - History of Present Illness Initial comments: This is a 63-year-old female. This patient is not known to this provider previously. The patient does not have a local primary care doctor. Her past medical history includes breast cancer, hypertension and high cholesterol. The patient presents to the ER with a complaint of weakness, malaise, fatigue, nausea, vomiting, bilateral lower extremity pain, burning in nature, left-sided chest wall pain, decreased appetite. Symptoms present over the past couple days to weeks, they're intermittent, did not radiate anywhere, but getting worse. Chest wall pain increases with palpation. Lower extremity pain is intermittent. She also endorses upper abdominal pain. The patient was admitted to this hospital in December for stress test/cardiac risk stratification. She had a CT scan of the chest which was negative for pulmonary embolism, but suggested a left-sided breast mass. She also had a nuclear cardiac stress test, which was negative for ischemia. The patient was discharged with instructions to follow up. The patient reported that she has not followed up. Currently, she does not have a satellite instruction facilitator, oncologist, breast specialist, or primary care doctor. -: Gradual, hour(s), week(s) Location: chest, back, abdomen, left, right, lower extremity Quality: aching Consistency: intermittent Improves with: rest Worsens with: movement - Related Data Previous Rx's Medication Instructions Recorded Last Taken Type Clindamycin [Clindamycin CAP] 300 mg PO Q8H #30 cap 12/11/18 Unknown Rx Aspirin [Aspirin BABY CHEW TAB] 81 mg PO QDAY #30 tab.chew 07/28/19 Unknown Rx AtorvaSTATin [Lipitor] 40 mg PO QHS #30 tab 07/28/19 Unknown Rx Famotidine [Pepcid] 20 mg PO BID #30 tablet 07/28/19 Unknown Rx Nicotine [Habitrol] 14 mg TD DAILY #30 patch 07/28/19 Unknown Rx Ondansetron [Zofran Odt] 4 mg PO Q8HR PRN #20 tab.rapdis 07/28/19 Unknown Rx oxyCODONE [Roxicodone] 5 mg PO Q6HR PRN #15 tablet 07/28/19 Unknown Rx Allergies Allergy/AdvReac Type Severity Reaction Status Date / Time No Known Allergies Allergy Verified 12/10/18 13:01 ED Review of Systems ROS: Stated complaint: CHEST PAIN,NUMBNESS,WEAKNESS Other details as noted in HPI Constitutional: malaise, weakness. denies: fever Eyes: denies: eye discharge ENT: denies: epistaxis Respiratory: denies: wheezing Cardiovascular: chest pain Gastrointestinal: abdominal pain, nausea, vomiting Genitourinary: dysuria Musculoskeletal: back pain, arthralgia, myalgia Neurological: weakness Psychiatric: anxiety Hematological/Lymphatic: denies: easy bleeding ED Past Medical Hx - Past Medical History Previous Medical History?: Yes Hx Congestive Heart Failure: No Hx Diabetes: Yes Hx of Cancer: Yes (Left breast) Hx Asthma: No Hx COPD: No Hx HIV: No Additional medical history: left breast lumpectomy with chemo and radiation-2000 - Surgical History Past Surgical History?: Yes Hx Breast Surgery: Yes Additional Surgical History: left breast lumpectomy, bladder surgery, Uvula removed - Social History Smoking Status: Current Every Day Smoker Substance Use Type: None - Medications Home Medications: Home Medications Medication Instructions Recorded Confirmed Last Taken Type Clindamycin [Clindamycin CAP] 300 mg PO Q8H #30 cap 12/11/18 Unknown Rx Aspirin [Aspirin BABY CHEW TAB] 81 mg PO QDAY #30 tab.chew 07/28/19 Unknown Rx AtorvaSTATin [Lipitor] 40 mg PO QHS #30 tab 07/28/19 Unknown Rx Famotidine [Pepcid] 20 mg PO BID #30 tablet 07/28/19 Unknown Rx Nicotine [Habitrol] 14 mg TD DAILY #30 patch 07/28/19 Unknown Rx Ondansetron [Zofran Odt] 4 mg PO Q8HR PRN #20 tab.rapdis 07/28/19 Unknown Rx oxyCODONE [Roxicodone] 5 mg PO Q6HR PRN #15 tablet 07/28/19 Unknown Rx ED Physical Exam - General Limitations: Physical Limitation, Other (during the history and physical, I am chaperoned by Jazlyn Johnston) General appearance: alert, anxious, in distress - Head Head exam: Present: atraumatic, normocephalic - Eye Eye exam: Present: normal appearance, EOMI. Absent: nystagmus - ENT ENT exam: Present: normal exam, normal orophraynx, mucous membranes moist - Neck Neck exam: Present: normal inspection, full ROM. Absent: tenderness, meningismus - Respiratory Respiratory exam: Present: normal lung sounds bilaterally, rhonchi (rhonchi noted in left hemithorax), chest wall tenderness, other (there is left-sided breast wall tenderness, redness, and induration. There is no crepitus. There is pea d orange). Absent: respiratory distress, wheezes, rales, stridor - Cardiovascular Cardiovascular Exam: Present: normal rhythm, tachycardia, normal heart sounds. Absent: systolic murmur, diastolic murmur, rubs, gallop - GI/Abdominal GI/Abdominal exam: Present: soft, tenderness, other (there is upper abdominal tenderness, with no rebound, guarding or peritoneal signs.). Absent: distended, guarding, rebound, rigid, pulsatile mass - Extremities Exam Extremities exam: Present: normal inspection, full ROM, other (2+ pulses noted in the bilateral upper, lower extremities. There is no long bone tenderness. Musculoskeletal compartments are soft. The pelvis is stable.). Absent: pedal edema, calf tenderness - Back Exam Back exam: Present: normal inspection, full ROM, paraspinal tenderness. Absent: CVA tenderness (R), CVA tenderness (L), vertebral tenderness - Neurological Exam Neurological exam: Present: alert, other (there is no facial droop. The tongue is midline. Extraocular movements are intact bilaterally. Patient speaking in full complete sentences. Shoulder shrug is intact bilaterally. Hearing is grossly intact bilaterally. Visual acuity intact to finger counting and color perception at a close distance. 5/5 strength 4 extremities. Sensation intact to light touch in 4 extremities.). Absent: motor sensory deficit (downgoing plantar reflexes bilaterally.) - Psychiatric Psychiatric exam: Present: normal affect, anxious - Skin Skin exam: Present: warm, dry, intact, normal color. Absent: rash ED Course Vital Signs 07/27/19 07/27/19 07/28/19 19:52 21:34 00:12 Temperature 98.3 F Pulse Rate 105 H 88 71 Respiratory 20 20 21 Rate Blood Pressure 173/119 Blood Pressure 182/75 151/59 [Right] O2 Sat by Pulse 98 98 98 Oximetry - Reevaluation(s) Reevaluation #1: 07/27/19 22:13 Differential diagnosis, including not limited to: Breast cancer, localized versus metastatic, urinary tract infection, electrolyte derangement, deconditioning, pneumonia, intra-abdominal infection Pulmonary embolism, pneumonia, acute coronary syndrome Assessment and plan: 63-year-old female with left-sided breast findings concerning for recurrent malignancy. By her history, it does not sound like she is followed up as an outpatient. Suspicious for metastatic disease. She is tachycardic but not hypoxic. Recently had a cardiac risk stratification. She also appears to be globally weak globally deconditioned. CT scan of the chest, abdomen and pelvis ordered. Urinalysis ordered, pain medication, nausea medication ordered, will reassess after data points. 07/27/19 22:13 07/27/19 22:16 Hypercalcemia reviewed and appreciated, patient will be given IV fluids. Suspicious for metastatic disease. Reevaluation #2: 07/27/19 23:50 CT scan of the abdomen and pelvis is negative for acute disease. Patient feels improved. She is walking with a steady gait. Troponin is negative 2. CT scan of the chest, urinalysis, repeat EKG pending Reevaluation #3: 07/28/19 00:13 CT scan of the chest suggest no pulmonary embolism or pneumonia. No active vomiting. Urinalysis negative. Breast cancer is suggested. The patient will be discharged, she'll need to follow up closely with outpatient hematology, oncology and breast specialist. Recently had a cardiac risk stratification within the past year, this is unlikely to be acute coronary syndrome. ED Medical Decision Making - Lab Data Result diagrams: 07/27/19 20:53 07/27/19 20:53 Vital Signs 07/27/19 07/27/19 19:52 21:34 Temperature 98.3 F Pulse Rate 105 H 88 Respiratory 20 20 Rate Blood Pressure 173/119 Blood Pressure 182/75 [Right] O2 Sat by Pulse 98 98 Oximetry Lab Results 07/27/19 07/27/19 07/27/19 Range/Units 20:04 20:53 20:53 WBC 6.2 (4.5-11.0) K/mm3 RBC 4.48 (3.65-5.03) M/mm3 Hgb 14.2 (10.1-14.3) gm/dl Hct 43.3 H (30.3-42.9) % MCV 97 (79-97) fl MCH 32 (28-32) pg MCHC 33 (30-34) % RDW 13.3 (13.2-15.2) % Plt Count 336 (140-440) K/mm3 Lymph % (Auto) 40.6 H (13.4-35.0) % Andrew % (Auto) 7.0 (0.0-7.3) % Eos % (Auto) 1.1 (0.0-4.3) % Baso % (Auto) 0.4 (0.0-1.8) % Lymph # 2.5 (1.2-5.4) K/mm3 Andrew # 0.4 (0.0-0.8) K/mm3 Eos # 0.1 (0.0-0.4) K/mm3 Baso # 0.0 (0.0-0.1) K/mm3 Seg Neutrophils % 50.9 (40.0-70.0) % Seg Neutrophils # 3.1 (1.8-7.7) K/mm3 Sodium 139 (137-145) mmol/L Potassium 4.5 (3.6-5.0) mmol/L Chloride 97.5 L (98-107) mmol/L Carbon Dioxide 23 (22-30) mmol/L Anion Gap 23 mmol/L BUN 11 (7-17) mg/dL Creatinine 0.7 (0.7-1.2) mg/dL Estimated GFR > 60 ml/min BUN/Creatinine Ratio 16 % Glucose 260 H (65-100) mg/dL POC Glucose 257 H (70-105) Calcium 11.2 H (8.4-10.2) mg/dL Total Bilirubin 0.30 (0.1-1.2) mg/dL AST 16 (5-40) units/L ALT 20 (7-56) units/L Alkaline Phosphatase 65 (35-129) units/L Troponin T (0.00-0.029) ng/mL Total Protein 8.5 H (6.3-8.2) g/dL Albumin 4.6 (3.9-5) g/dL Albumin/Globulin Ratio 1.2 % 07/27/19 Range/Units 20:53 WBC (4.5-11.0) K/mm3 RBC (3.65-5.03) M/mm3 Hgb (10.1-14.3) gm/dl Hct (30.3-42.9) % MCV (79-97) fl MCH (28-32) pg MCHC (30-34) % RDW (13.2-15.2) % Plt Count (140-440) K/mm3 Lymph % (Auto) (13.4-35.0) % Andrew % (Auto) (0.0-7.3) % Eos % (Auto) (0.0-4.3) % Baso % (Auto) (0.0-1.8) % Lymph # (1.2-5.4) K/mm3 Andrew # (0.0-0.8) K/mm3 Eos # (0.0-0.4) K/mm3 Baso # (0.0-0.1) K/mm3 Seg Neutrophils % (40.0-70.0) % Seg Neutrophils # (1.8-7.7) K/mm3 Sodium (137-145) mmol/L Potassium (3.6-5.0) mmol/L Chloride (98-107) mmol/L Carbon Dioxide (22-30) mmol/L Anion Gap mmol/L BUN (7-17) mg/dL Creatinine (0.7-1.2) mg/dL Estimated GFR ml/min BUN/Creatinine Ratio % Glucose (65-100) mg/dL POC Glucose (70-105) Calcium (8.4-10.2) mg/dL Total Bilirubin (0.1-1.2) mg/dL AST (5-40) units/L ALT (7-56) units/L Alkaline Phosphatase (35-129) units/L Troponin T < 0.010 (0.00-0.029) ng/mL Total Protein (6.3-8.2) g/dL Albumin (3.9-5) g/dL Albumin/Globulin Ratio % - EKG Data -: EKG Interpreted by Me EKG shows normal: sinus rhythm Rate: tachycardia - EKG Data 07/27/19 22:16 EKG shows sinus tachycardia, 102 bpm, normal axis, low voltage, QTC is prolonged, artifact, the EKG is not consistent with ST elevation myocardial infarction, appears to be grossly unchanged from prior EKG from December 2018 - Radiology Data Radiology results: pending, report reviewed X-ray of the chest is negative for acute disease Referring Physician: DMITRI ASCENCIO Patient Name: NICOLÁS CANAS Date of : 1955 Sex: Female Report Date: 2019-07-27 Report Status: Finalized Findings [facility] [address] [place] [address] Cat Scan Report Signed Patient: NICOLÁS CANAS MR#: [id number] : 1955 Acct:[id number] Age/Sex: 63 / F ADM Date: 07/27/19 Loc: ED Attending Dr: Ordering Physician: DMITRI ASCENCIO MD Date of Service: 07/27/19 Procedure(s): CT angio chest Accession Number(s): [id number] cc: DMITRI ASCENCIO MD CTA CHEST WITH CONTRAST INDICATION / CLINICAL INFORMATION: cp weak left rhonchi. TECHNIQUE: Axial CT images were obtained through the chest after injection of IV contrast. 3 plane MIP and/or 3D reconstructions were produced. All CT scans at this location are performed using CT dose reduction for ALARA by means of automated exposure control. COMPARISON: Images from CTA chest dated 12/10/18 are not currently available. The report from that study was reviewed. FINDINGS: PULMONARY ARTERIES: No pulmonary emboli. THORACIC AORTA: No significant abnormality. HEART: No significant abnormality. CORONARY ARTERIES: Mild left main calcification. MEDIASTINUM / ANDIE: No significant abnormality. PLEURA: No pleural effusion. No pneumothorax. LUNGS: No acute air space or interstitial disease. ADDITIONAL FINDINGS: Large mass infiltrating throughout the entire left breast with left skin thickening. This finding was noted on the report from the prior study. Mildly enlarged left axillary lymph nodes. UPPER ABDOMEN: No acute findings. SKELETAL STRUCTURES: No significant osseous abnormality. IMPRESSION: 1. No CT evidence for pulmonary embolism. 2. No acute pulmonary or pleural findings. 3. Large left breast mass with left skin thickening and mildly enlarged left axillary lymph nodes. Breast cancer should be considered. Clinical correlation and mammography are recommended. Signer Name: Meri Garcia MD Signed: 07/27/2019 11:48 PM Workstation Name: [id number] Transcribed By: DT Dictated By: Dangelo Garcia MD Electronically Authenticated By: Dangelo Garcia MD Signed Date/Time: 07/27/[address] a/p negative for acute disease Critical care attestation.: If time is entered above; I have spent that time in minutes in the direct care of this critically ill patient, excluding procedure time. ED Disposition Clinical Impression: Breast pain, Abdominal pain, Hypercalcemia, History of chest pain Disposition: TO HOME OR SELFCARE Is pt being admited?: No Does the pt Need Aspirin: No Condition: Stable Instructions: Chest Pain (ED) Additional Instructions: Take the medications as directed/needed. Recommend following up as soon as possible with an outpatient hematology manager oncology, or breast specialist. The patient most likely has breast cancer. Not following up as recommended as an outpatient in an urgent fashion may result in delay in diagnosis, which may cause disability, loss of quality of life, and worsening prognosis. Local manager oncology include the following physicians: Dr. Kira Valentine Local breast specialist includes Dr. Orozco Patient will also need to follow up with an outpatient primary care doctor, recommend following up with her primary care doctor within the next 2 weeks. In addition, given history of chest pain, patient should follow-up with the primary care doctor or tie loader for her chest pain within the next 5-7 days. Please return to the emergency room right away with new pain, worsening pain, migration of pain, projectile vomiting, change in mental status, confusion, inability to tolerate liquid feeds. Recommend drinking 4-6 cups of water per day for the next 5-7 days. Prescriptions: AtorvaSTATin [Lipitor] 40 mg PO QHS #30 tab Aspirin [Aspirin BABY CHEW TAB] 81 mg PO QDAY #30 tab.chew Nicotine [Habitrol] 14 mg TD DAILY #30 patch Famotidine [Pepcid] 20 mg PO BID #30 tablet oxyCODONE [Roxicodone] 5 mg PO Q6HR PRN #15 tablet PRN Reason: Pain Ondansetron [Zofran Odt] 4 mg PO Q8HR PRN #20 tab.rapdis PRN Reason: Nausea Referrals: DICKSON CAMARILLO MD [Staff Physician] - 3-5 Days SENAIT VALENTINE MD [Staff Physician] - 3-5 Days ABRAHAN BREWER MD [Staff Physician] - 3-5 Days [facility] [Provider Group] - 3-5 Days [facility] [Provider Group] - 3-5 Days DARCI OROZCO MD [Staff Physician] - 3-5 Days [facility] [Provider Group] - 3-5 Days
[2019-07-27 21:52] LABS: Alanine Aminotransferase 20 units/L (7-56); Albumin 4.6 g/dL (3.9-5); BUN/Creatinine Ratio 16; Blood Urea Nitrogen 11 mg/dL (7-17); Calcium 11.2 mg/dL (8.4-10.2); Hemolysis Index 2
[2019-07-27 23:00] LABS: Alanine Aminotransferase 18 units/L (7-56); Albumin 4.4 g/dL (3.9-5)
[2019-07-27 23:09] LABS: Bilirubin,Direct < 0.2 mg/dL (0-0.2)
--- NOTE | 2019-07-27 23:46 | Cat Scan Report ---
CT ABDOMEN AND PELVIS WITH CONTRAST INDICATION / CLINICAL INFORMATION: abd pain. TECHNIQUE: Axial CT images were obtained through the abdomen and pelvis after IV contrast. All CT scans at this location are performed using CT dose reduction for ALARA by means of automated exposure control. COMPARISON: None available. FINDINGS: LOWER CHEST: No significant abnormality. LIVER: No significant abnormality. GALLBLADDER: No significant abnormality. BILE DUCTS: No significant abnormality. PANCREAS: No significant abnormality. SPLEEN: No significant abnormality. ADRENALS: Hypertrophy and nodularity of both adrenal glands, left greater than right. RIGHT KIDNEY and URETER: No significant abnormality. LEFT KIDNEY and URETER: No significant abnormality. STOMACH and SMALL BOWEL: No significant abnormality. COLON: No significant abnormality. APPENDIX: No significant abnormality. PERITONEUM: No free fluid. No free air. No fluid collection. LYMPH NODES: No significant adenopathy. AORTA and ARTERIES: Moderate atherosclerotic disease without acute abnormality. IVC and VEINS: No significant abnormality. URINARY BLADDER: No significant abnormality. REPRODUCTIVE ORGANS: No significant abnormality. ADDITIONAL FINDINGS: None. SKELETAL SYSTEM: No significant abnormality. IMPRESSION: 1. No inflammatory process or bowel obstruction. 2. No acute findings. Signer Name: Meri Garcia MD Signed: 07/27/2019 11:42 PM Workstation Name: [id number]
--- NOTE | 2019-07-27 23:52 | Cat Scan Report ---
CTA CHEST WITH CONTRAST INDICATION / CLINICAL INFORMATION: cp weak left rhonchi. TECHNIQUE: Axial CT images were obtained through the chest after injection of IV contrast. 3 plane MIP and/or 3D reconstructions were produced. All CT scans at this location are performed using CT dose reduction f or ALARA by means of automated exposure control. COMPARISON: Images from CTA chest dated 12/10/18 are not currently available. The report from that study was revi ewed. FINDINGS: PULMONARY ARTERIES: No pulmonary emboli. THORACIC AORTA: No significant abnormality. HEART: No significant abnormality. CORONARY ARTERIES: Mild left main calcification. MEDIASTINUM / ANDIE: No significant abnormality. PLEURA: No pleural effusion. No pneumothorax. LUNGS: No acute air space or interstitial disease. ADDITIONAL FINDINGS: Large mass infiltrating throughout the entire left breast with left skin thicken ing. This finding was noted on the report from the prior study. Mildly enlarged left axillary lymph n odes. UPPER ABDOMEN: No acute findings. SKELETAL STRUCTURES: No significant osseous abnormality. IMPRESSION: 1. No CT evidence for pulmonary embolism. 2. No acute pulmonary or pleural findings. 3. Large left breast mass with left skin thickening and mildly enlarged left axillary lymph nodes. Br east cancer should be considered. Clinical correlation and mammography are recommended. Signer Name: Meri Garcia MD Signed: 07/27/2019 11:48 PM Workstation Name: [id number]
[2019-07-28 00:03] LABS: Bilirubin,Urine NEG (Negative); Blood,Urine NEG (Negative); Color,Urine Yellow (Yellow); Mucus,Urine 1+ /HPF; Urobilinogen,Urine < 2.0 mg/dL (<2.0)
[2019-07-28] MEDS ORDERED: oxyCODONE /ACETAMINOPHEN 5-325MG TAB PO ONE (00:45)
[2019-07-28 01:35] VITALS: BP 168/59
== END 2019-07-28 01:35 | disposition home or self-care (01) ==
LOC: ED 19:47
DX: N64.4 Mastodynia (principal); R10.9 Unspecified abdominal pain; E83.52 Hypercalcemia; E11.9 Type 2 diabetes mellitus without complications; F17.200 Nicotine dependence, unspecified, uncomplicated; Z85.3 Personal history of malignant neoplasm of breast; Z98.890 Other specified postprocedural states; Z79.82 Long term (current) use of aspirin; Z79.899 Other long term (current) drug therapy
CPT/HCPCS: 36415; 71045; 71275; 74177; 80053; 80076; 81001; 82140; 82550; 82962; 83690; 83735; 84484; 85025; 93005; 93010; 96361; 96374; 96375; 99285; J2270; J2405; J7030; Q9967

== ENCOUNTER 2019-08-10 10:21 | Outpatient (CLI) | payer MEDICARE, MEDICAID | END 2019-08-10 10:22 | disposition home or self-care (01) | LOC: LABHHL 10:21 | PROVIDERS: ATTEND Surgery | DX: N63.21 Unspecified lump in the left breast, upper outer quadrant (principal); D48.7 Neoplasm of uncertain behavior of other specified sites; D36.0 Benign neoplasm of lymph nodes | CPT/HCPCS: 88305; 88341; 88342 ==

== ENCOUNTER 2019-08-21 05:57 | Day surgery (SDC) | payer MEDICARE ==
[~2019-08-21 05:57] MED LIST: LACTATED RINGERS 1,000 ML IV SCH
[2019-08-21] MEDS ORDERED: VERSED IV NR (06:00)
[2019-08-21] MEDS ORDERED: ceFAZolin 2 GM in NACL 0.9% 100 ML IV ONE (07:00)
--- NOTE | 2019-08-21 07:22 | Anesthesia Day of Surgery ---
Anesthesia Day of Surgery - Day of Surgery Patient Examined: Yes Patient H&P Reviewed: Yes Patient is NPO: Yes
[2019-08-21] MEDS ORDERED: XYLOCAINE 1% 20 mL ONE (07:26)
[2019-08-21] MEDS ORDERED: MARCAINE 0.25% INFILTRATI ONE ×2 (07:26→08:02)
--- NOTE | 2019-08-21 07:26 | Anesthesia Consultation ---
Anesthesia Consult and Med Hx Date of service: 08/21/19 - Airway Anesthetic Teeth Evaluation: Chipped (LOOSE TOOTH) - Pre-Operative Health Status ASA Pre-Surgery Classification: ASA3 Proposed Anesthetic Plan: General - Pulmonary Hx Smoking: Yes Hx Asthma: No COPD: No Hx Pneumonia: No - Cardiovascular System Hx Hypertension: No - Central Nervous System Hx Psychiatric Problems: No - Endocrine Hx End Stage Renal Disease: No - Other Systems Hx Cancer: Yes
[2019-08-21] MEDS ORDERED: HEPARIN 10,000 UNITS/10 ML ONE (07:27)
[2019-08-21] MEDS ORDERED: NACL P/F VIAL (10 ML) 0 ML ONE (07:27)
[2019-08-21] MEDS ORDERED: XYLOCAINE MPF 2% ONE (07:28)
[2019-08-21] MEDS ORDERED: NACL 0.9% 100 ML ONE (07:28)
[2019-08-21] MEDS ORDERED: DECADRON ONE (07:28)
[2019-08-21] MEDS ORDERED: SUBLIMAZE ONE (07:28)
[2019-08-21] MEDS ORDERED: ZOFRAN ONE (07:28)
[2019-08-21] MEDS ORDERED: DIPRIVAN 10 MG/ML IV ONE (07:29)
[2019-08-21] MEDS ORDERED: HEPARIN 10,000 UNITS/10 ML IV ONE (08:00)
[2019-08-21] MEDS ORDERED: XYLOCAINE 1% 20 mL INFILTRATI ONE (08:01)
[2019-08-21] MEDS ORDERED: NACL 0.9% IV ONE (08:03)
[2019-08-21] MEDS ORDERED: NACL 0.9% IR ONE (08:03)
--- NOTE | 2019-08-21 08:48 | Short Stay Summary ---
Short Stay Documentation Date of service: 08/21/19 - History Principal diagnosis: recurrent left breast cancer - Allergies and Medications Current Medications: Allergies No Known Allergies Allergy (Verified 12/10/18 13:01) Home Medications Medication Instructions Recorded Confirmed Last Taken Type Clindamycin [Clindamycin CAP] 300 mg PO Q8H #30 cap 12/11/18 08/21/19 08/21/19 04:00 Rx Aspirin [Aspirin BABY CHEW TAB] 81 mg PO QDAY #30 tab.chew 07/28/19 08/21/19 08/17/19 09:00 Rx AtorvaSTATin [Lipitor] 40 mg PO QHS #30 tab 07/28/19 08/21/19 08/20/19 17:00 Rx Famotidine [Pepcid] 20 mg PO BID #30 tablet 07/28/19 08/21/19 08/21/19 04:00 Rx Nicotine [Habitrol] 14 mg TD DAILY #30 patch 07/28/19 08/21/19 08/20/19 17:00 Rx Ondansetron [Zofran Odt] 4 mg PO Q8HR PRN #20 tab.rapdis 07/28/19 08/21/19 08/20/19 17:00 Rx oxyCODONE [Roxicodone] 5 mg PO Q6HR PRN #15 tablet 07/28/19 08/21/19 08/21/19 04:00 Rx Active Medications Lactated Ringer's (Lactated Ringers) 1,000 mls @ 100 mls/hr IV DIRECT FARRAH Last Admin: 08/21/19 06:40 Dose: 100 mls/hr Documented by: Midazolam HCl (Versed) 2 mg IV PREOP NR Stop: 08/21/19 23:00 Last Admin: 08/21/19 07:24 Dose: 2 mg Documented by: - Brief post op/procedure progress note Date of procedure: 08/21/19 Pre-op diagnosis: recurrent left breast cancer Post-op diagnosis: same Procedure: right internal jugular port a cath, mindray ultrasound guidance Anesthesia: GETA, local Findings: good placement of port on post op CXR without PTX Surgeon: ANNE CARTER Estimated blood loss: minimal Pathology: none Condition: stable - Hospital course Hospital course: Pt observed in PACU and discharged to home in stable condition when criteria met. - Disposition Condition at discharge: Good Disposition: DC-01 TO HOME OR SELFCARE Short Stay Discharge Plan Activity: no restrictions Diet: regular Wound: open to air Additional Instructions: SEE PRINTED DISCHARGE INSTRUCTIONS YOU HAVE AN APPOINTMENT WITH DR. ZIA GIBSON ON 08/27/19 Follow up with: PRIMARY CAREMD [Primary Care Provider] - 7 Days ANNE CARTER DO [Staff Physician] - 7 Days CASANDRA BARNEY MD [Referring] - 7 Days
--- NOTE | 2019-08-21 09:05 | Fluoroscopy Report ---
CHEST 1 VIEW INDICATION: LT BREAST CANCER. [id number] insertion. COMPARISON: 07/27/2019 FINDINGS: Support devices: An [id number] is been inserted and the tip is in the right atrium. Heart: Within normal limits. Lungs/Pleura: No acute air space or interstitial disease. Additional findings: No pneumothorax. IMPRESSION: Satisfactory placement of [id number]. Signer Name: Triston Crawford MD Signed: 08/21/2019 9:01 AM Workstation Name: [id number]
[2019-08-21 10:04] VITALS: BP 128/62
--- NOTE | 2019-08-21 13:27 | Operative Report ---
PREOPERATIVE DIAGNOSIS: Recurrent left breast cancer. POSTOPERATIVE DIAGNOSIS: Recurrent left breast cancer. PROCEDURE: Right internal jugular Port-A-Cath placement with Mindray ultrasound guidance. ANESTHESIA: LMA local. FINDINGS: Good placement of port on postop chest x-ray without pneumothorax. SURGEON: Janae Collier DO ESTIMATED BLOOD LOSS: Minimal. PATHOLOGY: None. CONDITION ON DISCHARGE: The patient is stable to PACU. HISTORY OF PRESENT ILLNESS AND INDICATIONS: The patient is a 63-year-old female who has recently diagnosed recurrent left-sided breast cancer who is seeing breast surgery and Oncology. Her oncologist is Dr. Calvin. The patient was referred to surgery clinic for evaluation for port and stated that she was to start chemotherapy as soon as possible. The patient was deemed an appropriate candidate for port placement and all risks, benefits, alternatives to surgery were discussed with the patient and questions answered. Consent obtained. PROCEDURE IN DETAIL: The patient was identified in the preoperative area and taken back to the operating room and placed on the operating table in supine position. After anesthesia was induced, bilateral arms were tucked and all bony prominences padded appropriately. Bilateral upper chest and neck areas were prepped and draped in the usual sterile fashion. Timeout was performed. Using ultrasound guidance, the right subclavian vein and internal jugular vein were identified. The patient was placed in slight Trendelenburg position and the local anesthetic was infiltrated into the intended puncture site. The right subclavian vein was accessed on the first stick. There was return of sluggish dark red nonpulsatile blood. A wire was threaded, however, could not be passed without significant resistance and therefore, the wire and the needle were removed and pressure was held at the site for several minutes. Hemostasis was ensured. It was therefore decided to obtain internal jugular vein access. The internal jugular vein was identified on ultrasound guidance and compressible. It was accessed on the first stick and there was return of dark red nonpulsatile blood. The wire was threaded without resistance and positioning confirmed using fluoroscopy. Wire was affixed to the drapes using a hemostat. Local anesthetic was then infiltrated into the skin and subcutaneous tissue at the intended incision site in the right upper chest. A 4-cm incision was made using a 15 blade and dissection carried down through the skin and subcutaneous tissue using Bovie electrocautery until the prepectoral fascia was encountered. A subcutaneous pocket for the port was then created using combination of blunt dissection and electrocautery. The pocket was checked for hemostasis, which was carefully ensured. The catheter was then tunneled from the pocket to the wire and a breakaway catheter dilator inserted over the wire under direct fluoroscopic guidance. The dilator and wire were then removed and the catheter threaded through the break-away sheath in the usual fashion and the break-away sheath removed. The catheter was then pulled back until the tip was seen to lay in the right atrium at the cavoatrial junction. The catheter was cut to size and assembled with the port in the usual fashion. The port was then placed into the subcutaneous pocket and sutured to the prepectoral fascia in two locations using 2-0 Vicryl interrupted sutures. The port was tested with heparinized saline and did draw back dark red blood without resistance and it flushed easily. The port was then flushed with 3000 units of heparin. The pocket was once again checked for hemostasis, which was carefully ensured. The skin incision was then closed in a layered fashion. The deep dermal layer was closed using interrupted 3-0 Vicryl sutures. The skin incisions were closed with 4-0 Monocryl subcuticular stitches and skin glue. At the end of the case, all sponge, instrument, sharp counts were correct x 2. The patient was awoken from anesthesia and a postoperative chest x-ray was obtained. The x-ray showed that the port was in good position without kinking and no pneumothorax. The patient was taken to PACU in stable condition. Dr. Calvin's office was notified of successful port placement. JOB# [id number] WILLAM/GARY POWELL
--- NOTE | 2019-08-21 21:18 | Post Anesthesia Evaluation ---
- Post Anesthesia Evaluation Patient Participated: Yes Airway Patent: Yes Stable Respiratory Function: Yes Nausea/Vomiting: No Temp > 96.8F: Yes Pain Manageable: Yes Adequeate Hydration: Yes Anesthesia Complications: No Block Receding Appropriately: Not Applicable Patient on Ventilator: No
== END 2019-08-21 10:42 | disposition home or self-care (01) ==
LOC: OR 05:57
PROVIDERS: ATTEND Surgery
DX: C50.911 Malignant neoplasm of unspecified site of right female breast (principal); Z79.899 Other long term (current) drug therapy; Z79.82 Long term (current) use of aspirin; F17.210 Nicotine dependence, cigarettes, uncomplicated; Z85.118 Personal history of other malignant neoplasm of bronchus and lung; Z98.890 Other specified postprocedural states; Z83.3 Family history of diabetes mellitus; Z82.5 Family history of asthma and other chronic lower respiratory diseases
CPT/HCPCS: 36561; 77001; 82803; C1769; C1788; J1100; J1644; J2250; J2405; J2704; J3010; J7120

== ENCOUNTER 2019-09-03 10:43 | Outpatient (CLI) | payer MEDICARE ==
--- NOTE | 2019-09-04 14:21 | Magnetic Resonance Report ---
BILATERAL BREAST MR WITHOUT AND WITH GADOLINIUM INDICATION: Biopsy-proven recurrent left breast cancer and left axillary lymph node metastasis. COMPARISONS: 08/06/2019 mammogram TECHNIQUE: Axial 1.0 mm T1 without, axial high-resolution 2.0 mm T2 and axial 1.0 mm dynamic vibrant high-resolution postcontrast T1 fat saturation sequences on a 1.5 Diane magnet. The examination was p erformed with an 8-channel dedicated [place] breast coil. Post-processing with CAD and subtraction was performed on an [employer] workstation. 15.0 cc of MultiHance was injected without incident for the c ontrast portion of the exam. Consent was obtained prior to the administration of the contrast. FINDINGS: RIGHT BREAST: Minimal background parenchymal enhancement. No mass or suspicious enhancement. A level 1 axillary lymph node has minimal central fat and measures 1.6 x 1.0 cm. No other suspicious lymph no catherine. LEFT BREAST: Marked background parenchymal enhancement. An infiltrative retroareolar mass measures ap proximately 10.3 cm craniocaudal dimension by 5.7 cm transverse dimension by 3.1 cm AP dimension. The mass extends to the nipple and skin and there is marked skin thickening with enhancement of the skin . The mass demonstrates heterogeneous enhancement with mixed kinetics, 392% peak enhancement and 23% type III washout. A biopsy clip is identified in the superior aspect of the mass. No pectoral muscle or chest wall invasion. Several left axillary lymph nodes have abnormal morphology and a biopsy clip is identified within one of the lymph nodes. No suspicious left internal mammary lymph nodes or subpe ctoral lymph nodes. IMPRESSION: 1. Recurrent left breast cancer with multicentric tumor involving the nipple and extending to the ski n. 2. Left axillary lymph node metastasis. 3. A suspicious right level 1 axillary lymph node. The right breast is otherwise negative. BI-RADS Category 6: Known cancer Signer Name: Triston Crawford MD Signed: 09/04/2019 2:17 PM Workstation Name: [id number]
== END 2019-09-03 10:44 | disposition home or self-care (01) ==
LOC: SPVIMAG 10:43
PROVIDERS: ATTEND Surgery
DX: C50.412 Malignant neoplasm of upper-outer quadrant of left female breast (principal); F17.200 Nicotine dependence, unspecified, uncomplicated; C77.3 Secondary and unspecified malignant neoplasm of axilla and upper limb lymph nodes
CPT/HCPCS: A9577; C8908; 77049

== ENCOUNTER 2019-11-26 09:08 | Outpatient (CLI) | payer MEDICARE ==
[2019-11-26 10:54] LABS: Blood Urea Nitrogen 11 mg/dL (7-17)
--- NOTE | 2019-11-26 14:12 | Cat Scan Report ---
CT ABDOMEN AND PELVIS WITHOUT CONTRAST INDICATION: Follow-up breast cancer CONTRAST: 100 cc Omnipaque 300 IV COMPARISON: 07/27/[address] scans at this location are performed using CT dose reduction for ALARA by means of automated e xposure control. FINDINGS: Port-A-Cath into the right atrium. No significant focal bony lesions are seen. No mediastin al or hilar masses are seen. No pleural effusions are noted. No pneumothorax or pneumomediastinum are seen. No obvious endobronchial lesions are noted. Lung gama are clear of infiltrates, nodules, or masses. The irregular and extensive lobular mixed density mass in the upper central left breast extending inf eriorly in the lateral central aspect is again seen. Measurement is difficult due to the irregular sh ape of this mass but in general this appears mildly improved. The maximal transverse diameter measure s 5.5 cm compared to 5.9 cm and maximal thickness of the upper larger portion measures 3.3 cm compare d to 3.9 cm. There are several probable satellite lesions medial to the main mass which also appear m ildly improved. Prominent skin thickening is diffusely noted again. Edema is seen through much of the breast. Left axillary adenopathy is again seen though improved. In the right axilla single indetermi winter node has a short axis diameter of 10 mm which is larger than the 7 mm short axis diameter on marija or study. No pneumoperitoneum is seen. No significant abdominal wall herniation is noted. Spleen show no lesion s. Minimal probable cysts are seen in the kidneys. No urinary obstructive changes are seen. Pancreas, gallbladder, and bile ducts appear within normal limits. Nodularity in the left adrenal gland is unc hanged. Moderate atherosclerotic changes are seen in the aorta without aneurysmal dilatation. No lymp hadenopathy is seen. No free fluid is noted. Mild colonic diverticulosis is seen without evidence of diverticulitis. No evidence of bowel obstruction is seen. Appendix appears within normal limits. The urinary bladder shows diffuse wall thickening and there is probably mucosal enhancement is more promi nent than usual. No mass is seen. Small calcified uterine leiomyoma is noted. IMPRESSION: 1. Prominent neoplasia in the left breast appears mildly improved 2. Left axillary adenopathy is improved 3. Mild increase in size of an indeterminate lymph node in the right axilla 4. Nodularity of the left adrenal gland is stable 5. Bladder wall thickening and enhancement suggesting cystitis Signer Name: Wilber Najera MD Signed: 11/26/2019 2:08 PM Workstation Name: [id number]
== END 2019-11-26 09:09 | disposition home or self-care (01) ==
LOC: CT 09:08
PROVIDERS: ATTEND Internal Medicine Hematology & Oncology
DX: N63.41 Unspecified lump in right breast, subareolar (principal); R59.0 Localized enlarged lymph nodes; I70.0 Atherosclerosis of aorta; N85.8 Other specified noninflammatory disorders of uterus
CPT/HCPCS: 36415; 71260; 74160; 82565; 84520; Q9967

== ENCOUNTER 2020-04-10 07:00 | Outpatient (CLI) | payer MEDICARE ==
--- NOTE | 2020-04-10 11:31 | Nuclear Medicine Report ---
NUCLEAR MEDICINE BONE SCAN, WHOLE BODY INDICATION / CLINICAL INFORMATION: Recurrent breast cancer. TECHNIQUE: 25 mCi of Tc-99m MDP were injected IV. Images were obtained of the whole body. COMPARISON: CT chest 03/12/2020, CT abdomen 11/26/2019 FINDINGS: ARTICULAR STRUCTURES: Mild, relatively symmetric, periarticular activity which is likely degenerative . SKELETAL LESIONS: None. SOFT TISSUES: Normal. KIDNEYS: Normal. ADDITIONAL FINDINGS: None. IMPRESSION: 1. No scintigraphic evidence of active skeletal metastasis. Signer Name: Dangelo Rojas MD Signed: 04/10/2020 11:27 AM Workstation Name: [id number]
== END 2020-04-10 07:01 | disposition home or self-care (01) ==
LOC: NM 07:00
PROVIDERS: ATTEND Surgery
DX: C50.412 Malignant neoplasm of upper-outer quadrant of left female breast (principal); C50.212 Malignant neoplasm of upper-inner quadrant of left female breast
CPT/HCPCS: 78306; A9503

== ENCOUNTER 2020-09-30 13:46 | Outpatient (CLI) | payer MEDICARE ==
--- NOTE | 2020-09-30 15:37 | Mammography Report ---
BILATERAL DIGITAL DIAGNOSTIC MAMMOGRAM WITH CAD CONVENTIONAL, 09/30/2020 LEFT LIMITED BREAST ULTRASOUND CLINICAL INFORMATION / INDICATION: Known recurrent left breast cancer. TECHNIQUE: Digital bilateral mammographic imaging was performed. Limited ultrasound was performed. Th is examination was interpreted with the benefit of Computer-Aided Detection (CAD) analysis. COMPARISON: 08/06/2019 through 04/14/2020. FINDINGS: Breast Density: The breasts are heterogeneously dense, which may obscure small masses. MAMMOGRAPHIC FINDINGS: Postlumpectomy and radiation changes in the left breast are again identified. The mass in the left superior breast measures approximately 2.9 cm on the current study compared to 3 .8 cm previously. Right breast scarring is again noted. There are benign calcifications bilaterally. No new abnormality is seen. ULTRASOUND FINDINGS: Targeted ultrasound evaluation was performed of the area of interest. There is a 3.3 cm irregular solid mass at the 12:00 position 3 cm from the nipple. The mass measured approxim ately 3.5 cm previously. IMPRESSION: Known recurrent malignancy in the left superior breast is again identified and appears sl ightly smaller. No new abnormality. Follow up recommendation: Clinical exam BI-RADS Category 6: Known Biopsy-Proven Malignancy. A "normal" or negative report should not discourage follow up or biopsy of a clinically significant f inding. A written summary of these findings will be mailed to the patient. The patient will be entered into a mammography reporting system which will generate a reminder letter for the patient's next appointmen t at the appropriate interval. According to the [employer], yearly mammograms are recommended starting at age 40 and continuing as long as a woman is in good health. Breast MRI is recommended for women with an jihan roximately 20-25% or greater lifetime risk of breast cancer, including women with a strong family his tory of breast or ovarian cancer and women who have been treated for Hodgkin's disease. Signer Name: Emre Darling MD Signed: 09/30/2020 3:32 PM Workstation Name: [id number]
== END 2020-09-30 13:47 | disposition home or self-care (01) ==
LOC: SPVWC 13:46
PROVIDERS: ATTEND Surgery
DX: C50.912 Malignant neoplasm of unspecified site of left female breast (principal); N63.25 Unspecified lump in the left breast, overlapping quadrants; N64.89 Other specified disorders of breast
CPT/HCPCS: 77066

== ENCOUNTER 2020-11-12 10:26 | Outpatient (CLI) | payer MEDICARE ==
[2020-11-12 11:56] LABS: Blood Urea Nitrogen 8 mg/dL (7-17)
--- NOTE | 2020-11-12 14:21 | Cat Scan Report ---
CT CHEST WITH CONTRAST INDICATION / CLINICAL INFORMATION: BREAST CANCER. TECHNIQUE: Axial CT images were obtained through the chest after IV contrast. Sagittal and coronal reformatted i mages. All CT scans at this location are performed using CT dose reduction for ALARA by means of auto mated exposure control. COMPARISON: 03/12/2020 FINDINGS: HEART: No significant abnormality. THORACIC AORTA: No significant abnormality. MEDIASTINUM and ANDIE: No significant abnormality. LUNGS: No acute air space or interstitial disease. PLEURA: No significant pleural effusion. No pneumothorax. SKELETAL SYSTEM: No significant abnormality. ADDITIONAL FINDINGS: Soft tissue density left breast mass has decreased from 4.7 x 2.6 cm to 3.1 x 2. 0 cm. IMPRESSION: Decreased size of the left breast mass as described. No new mass or adenopathy in the chest. CT ABDOMEN AND PELVIS WITH CONTRAST HISTORY: BREAST CANCER COMPARISON: 09/11/2020 TECHNIQUE: Axial CT images were obtained through the abdomen and pelvis after 100 cc of IV contrast. Sagittal and coronal reformatted images. All CT scans at this location are performed using CT dose re duction for ALARA by means of automated exposure control. FINDINGS: CT ABDOMEN: Liver: No significant abnormality. Biliary: No significant abnormality. Spleen: No significant abnormality. Unenlarged. Pancreas: No significant abnormality. Adrenals: Slightly nodular appearance of both adrenal glands is stable. This may represent hyperplasi a. Kidneys: No significant abnormality. Lymphatics: No lymphadenopathy. Vasculature: Stable distal aortic and iliac atherosclerotic disease Bowel/Peritoneum: No significant abnormality. No free air. No free fluid. Normal appendix. CT PELVIS: : No significant abnormality. Osseous Structures: No significant abnormality. Additional Findings: Anterior abdominal wall abscess has resolved. IMPRESSION: Stable findings since 09/11/2020. No evidence for metastatic disease to the abdomen or pelvis. Resolved abdominal wall abscess since the previous exam. Signer Name: Clayton Goncalves Jr, MD Signed: 11/12/2020 2:17 PM Workstation Name: [id number]
== END 2020-11-12 10:27 | disposition home or self-care (01) ==
LOC: CT 10:26
PROVIDERS: ATTEND Internal Medicine Hematology & Oncology
DX: C50.912 Malignant neoplasm of unspecified site of left female breast (principal)
CPT/HCPCS: 36415; 71260; 74177; 82565; 84520; Q9967

== ENCOUNTER 2020-12-30 12:33 | Outpatient (CLI) | payer MEDICARE ==
--- NOTE | 2020-12-31 09:47 | Magnetic Resonance Report ---
Bilateral breast MRI with and without contrast. History: History of left breast cancer with lumpectomy in 2001, known recurrence in 2019 with large left breast mass undergoing subsequent and continuing chemotherapy and radiation therapy, planning fo r possible mastectomy Procedure: Axial T1 and T2-weighted fat-sat images were obtained precontrast. 15 cc MultiHance was i njected intravenously and serial axial T1-weighted images with fat saturation were obtained postcontr ast. 3-D MIP projections, Kinetic analysis and subtraction imaging was utilized to evaluate. A Siving Egil [place] 8 channel breast coil was utilized for image acquisition. Comparison: MR breast 09/03/2019, left mammogram 04/14/2020, bilateral mammogram 09/30/2020 Findings: Background level of enhancement is mild. No suspicious axillary or clavicular nodes are identified. No abnormal bone marrow signal is seen. No significant chest wall enhancement is noted. Right breast: Port-A-Cath is seen medially on the right. Benign-appearing stippled enhancement is see n. No suspicious lesions are noted. Left breast: Previous lumpectomy and radiation therapy changes are seen with diffuse skin thickening noted. The previous huge enhancing mass in the upper portion of the left breast which previously exte nded from the thickened skin layer to the margin of the chest wall with a maximal diameter of 8.3 cm is markedly improved. The greatest diameter of this mass lesion now is 3.8 cm. However, enhancement t hroughout this area is much improved in appearance with only mild patchy areas of abnormal enhancemen t seen. The mass extends anteriorly to the thickened skin surface and is seen to be within 2.3 cm abo ve the medial skin surface and 2.5 cm from the nearest point of the chest wall. No separate areas of suspicious enhancement are seen in the left breast. The diffuse enhancement seen in the lateral and l ower portion of the left breast on previous examination has resolved. Impression: 1. Marked improvement in the appearance of the known left breast neoplasia 2. No suspicious lesions are seen on the right 3. No obvious metastatic lesions are seen BIRADS: 6: Known diagnosis breast cancer Signer Name: Wilber Najera MD Signed: 12/31/2020 9:43 AM Workstation Name: [id number]
== END 2020-12-30 12:34 | disposition home or self-care (01) ==
LOC: SPVIMAG 12:33
PROVIDERS: ATTEND Surgery
DX: C50.412 Malignant neoplasm of upper-outer quadrant of left female breast (principal); N64.89 Other specified disorders of breast
CPT/HCPCS: A9577; C8908; 77049

== ENCOUNTER 2021-01-21 08:00 | Outpatient (CLI) | payer MEDICARE ==
--- NOTE | 2021-01-22 08:35 | Nuclear Medicine Report ---
NUCLEAR MEDICINE BONE SCAN, WHOLE BODY INDICATION: C50.412 . Staging of left breast cancer. TECHNIQUE: 25.1 mCi of Tc-99m MDP were injected IV. Whole body images were obtained. COMPARISON: Bone scan dated 04/10/2020. FINDINGS: Skeletal Structures: Fairly symmetric, likely degenerative uptake is present involving the shoulders , right knee and feet. Skeletal Lesions: None. Soft Tissues: Normal. Kidneys: Normal, symmetric activity. Additional Findings: Uptake secondary to poor dentition is noted.. IMPRESSION: No evidence for osseous metastasis on bone scan. No change since 04/10/2020.. Signer Name: Clayton Goncalves Jr, MD Signed: 01/21/2021 12:10 PM Workstation Name: [id number]
== END 2021-01-21 08:01 | disposition home or self-care (01) ==
LOC: NM 08:00
PROVIDERS: ATTEND Surgery
DX: C50.412 Malignant neoplasm of upper-outer quadrant of left female breast (principal)
CPT/HCPCS: 78306; A9503

== ENCOUNTER 2021-02-11 08:57 | Observation (INO) | payer MEDICARE ==
--- NOTE | 2021-02-10 14:16 | Anesthesia Consultation ---
Anesthesia Consult and Med Hx Date of service: 02/11/21 - Airway Anesthetic Teeth Evaluation: Poor (loose #26) ROM Head & Neck: Adequate Mental/Hyoid Distance: Adequate Mallampati Class: Class II Intubation Access Assessment: Probably Good - Pulmonary Exam CTA: Yes - Cardiac Exam Cardiac Exam: RRR - Pre-Operative Health Status ASA Pre-Surgery Classification: ASA3 Proposed Anesthetic Plan: General Nerve Block: PECS II - Pulmonary Hx Smoking: Yes (1 PPD) Hx Respiratory Symptoms: No COPD: Yes (no inhaler use in several months) Home Oxygen Therapy: No - Cardiovascular System Hx Hypertension: Yes Hx Heart Attack/AMI: No Hx Percutaneous Transluminal Coronary Angioplasty (PTCA): No Hx Cardia Arrhythmia: No - Central Nervous System Hx Neuromuscular Disorder: No (b/l LE neuropathy) CVA: No Hx Psychiatric Problems: Yes (depression) - Endocrine 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
[~2021-02-11 08:57] MED LIST changes: +ACETAMINOPHEN 500 MG TAB PO SCH; +CELECOXIB 200 MG CAP PO NR; +MIDAZOLAM 2 MG/2 ML INJ IV NR; +SCOPOLAMINE TRANSDERMAL PATCH 72 HR TD NR; +WATER FOR IRRIG STERILE 1,500 ML BOTTLE IR ONE; +ceFAZolin/Water 2 GM/20 ML 2 GM/20 ML SYRINGE IV NR; +fentaNYL 100 MCG/2 ML INJ IV PRN
[2021-02-11] MEDS ORDERED: SODIUM CHLORIDE P/F VIAL 10 ML 10 ML ONE (09:37)
[2021-02-11] MEDS ORDERED: METHYLENE BLUE 50 MG/10 ML AMP ONE (09:37)
[2021-02-11] MEDS ORDERED: BUPIVACAINE/PF (0.5%) 5 MG/1 ML 30 ML VIAL INFILTRATI ONE (10:02)
[2021-02-11] MEDS ORDERED: dexAMETHasone 4 MG/ML VIAL ONE (10:02)
[2021-02-11] MEDS ORDERED: HYDROmorphone 1 MG/1 ML INJ IV PRN (10:37)
[2021-02-11] MEDS ORDERED: ONDANSETRON 4 MG/2 ML INJ IV PRN ×2 (10:37→14:36)
--- NOTE | 2021-02-11 10:37 | Anesthesia Day of Surgery ---
Anesthesia Day of Surgery - Day of Surgery Patient Examined: Yes Patient H&P Reviewed: Yes Patient is NPO: Yes
[2021-02-11] MEDS ORDERED: ROCURONIUM 50 MG/5 ML INJ IV ONE (10:56)
[2021-02-11] MEDS ORDERED: fentaNYL 100 MCG/2 ML INJ ONE (10:56)
[2021-02-11] MEDS ORDERED: LIDOCAINE MPF (2%) 20 MG/1 ML VIAL 5 ML ONE (10:56)
[2021-02-11] MEDS ORDERED: propofoL 200 MG/20 ML VIAL IV ONE (10:57)
[2021-02-11] MEDS ORDERED: SUCCINYLCHOLINE CHLORIDE 200 MG/10 ML INJ MDV ONE (11:19)
[2021-02-11] MEDS ORDERED: SODIUM CHLORIDE 0.9% P/F 10 ML VIAL INFILTRATI ONE (11:27)
[2021-02-11] MEDS ORDERED: METHYLENE BLUE 50 MG/10 ML AMP IRRIGATION ONE (11:27)
[2021-02-11] MEDS ORDERED: ePHEDrine SULFATE 50 MG/1 ML INJ ONE (11:43)
[2021-02-11] MEDS ORDERED: HYDROmorphone 1 MG/1 ML INJ ONE (12:31)
[2021-02-11] MEDS ORDERED: LACTATED RINGERS 1,000 ML ONE (12:38)
[2021-02-11] MEDS ORDERED: SUGAMMADEX SODIUM 200 MG/2 ML VIAL IV ONE (12:55)
[2021-02-11] MEDS ORDERED: ONDANSETRON 4 MG/2 ML INJ ONE (13:11)
[2021-02-11] MEDS ORDERED: dexAMETHasone 20 MG/5 ML VIAL ONE (13:11)
[2021-02-11] MEDS ORDERED: NEOSTIGMINE 10MG/10 ML INJ MDV ONE (13:15)
[2021-02-11] MEDS ORDERED: GLYCOPYRROLATE 0.4 MG/2 ML INJ ONE (13:15)
[2021-02-11] MEDS ORDERED: WATER FOR IRRIG STERILE 1,500 ML BOTTLE IR ONE (13:40)
--- NOTE | 2021-02-11 14:35 | Short Stay Summary ---
Short Stay Documentation Date of service: 02/11/21 - History H&P: obtained from office - Allergies and Medications Current Medications: Allergies No Known Allergies Allergy (Verified 12/10/18 13:01) Home Medications Medication Instructions Recorded Confirmed Last Taken Type Aspirin [Aspirin BABY CHEW TAB] 81 mg PO QDAY #30 tab.chew 07/28/19 02/03/21 08/17/19 09:00 Rx Palbociclib [Ibrance] 125 mg PO DAILY 09/12/20 02/03/21 09/12/20 14:08 History Albuterol Mdi (or & Nicu Only) 2 puff IH QID PRN 02/03/21 02/03/21 Unknown History [ProAir HFA Inhaler] Metformin HCl [metFORMIN] 1,000 mg PO BID 02/03/21 02/03/21 Unknown History Stella-3 Fatty Acids/Fish Oil [Eql 1 each PO QDAY 02/03/21 02/03/21 Unknown History Fish Oil 1,000 mg Softgel] Pregabalin [Lyrica] 200 mg PO BID 02/03/21 02/03/21 Unknown History hydrOXYzine HCL [Atarax] 25 mg PO Q8HR PRN 02/03/21 02/03/21 Unknown History oxyCODONE /ACETAMINOPHEN [Percocet 1 tab PO Q6HR PRN #20 tablet 02/11/21 Unknown Rx 5/325] Active Medications Acetaminophen (Acetaminophen 500 Mg Tab) 1,000 mg PO PREOP FARRAH Stop: 02/11/21 21:00 Last Admin: 02/11/21 09:55 Dose: 1,000 mg Documented by: Celecoxib (Celecoxib 200 Mg Cap) 200 mg PO PREOP NR Stop: 02/11/21 21:00 Fentanyl (Fentanyl 100 Mcg/2 Ml Inj) 100 mcg IV ONCE PRN PRN Reason: sedation for nerve block Stop: 02/11/21 21:00 Hydromorphone HCl (Hydromorphone 1 Mg/1 Ml Inj) 0.5 mg IV Q10MIN PRN PRN Reason: Pain , Severe (7-10) Stop: 02/11/21 23:00 Cefazolin Sodium (Ancef/Sterile Water 2 Gm/20 Ml) 2 gm in 20 mls @ 80 mls/hr IV PREOP NR; Protocol Stop: 02/11/21 23:00 Lactated Ringer's (Lactated Ringers) 1,000 mls @ 100 mls/hr IV DIRECT FARRAH Stop: 02/11/21 23:59 Midazolam HCl (Midazolam 2 Mg/2 Ml Inj) 2 mg IV PREOP NR Stop: 02/11/21 21:00 Ondansetron HCl (Ondansetron 4 Mg/2 Ml Inj) 4 mg IV ONCE PRN PRN Reason: Nausea And Vomiting Stop: 02/11/21 16:00 Scopolamine (Scopolamine Transdermal Patch 72 Hr) 1 each TD PREOP NR Stop: 02/11/21 21:00 Last Admin: 02/11/21 09:55 Dose: 1 each Documented by: - Brief post op/procedure progress note Date of procedure: 02/11/21 Pre-op diagnosis: Left breast cancer upper outer quadrant Post-op diagnosis: same Procedure: Left total mastectomy with completion ALND Anesthesia: GETA Findings: Left breast cancer mass 12:00 position 3-5 cm FN; completion left axillary lymph node dissection-no uptake within axilla Surgeon: DARCI FREEMAN Estimated blood loss: 50-100ml Pathology: list (left total mastectomy; left ALND-completion) Specimen disposition: to lab Condition: stable - Disposition Condition at discharge: Good Disposition: DC/TX-02 SHRT-TRM GEN HOSP IP Short Stay Discharge Plan Activity: other (no heavy lifting) Diet: regular Wound: keep clean and dry (wear breast binder; no showers or bath) Follow up with: DARCI FREEMAN MD [Staff Physician] - 7 Days Prescriptions: oxyCODONE /ACETAMINOPHEN [Percocet 5/325] 1 tab PO Q6HR PRN #20 tablet PRN Reason: Pain
[2021-02-11] MEDS ORDERED: diphenhydrAMINE 25 MG CAP PO PRN (14:36)
[2021-02-11] MEDS ORDERED: ACETAMINOPHEN 325 MG TAB PO PRN (14:36)
[2021-02-11] MEDS ORDERED: HYDROmorphone 2 MG TAB PO PRN (14:36)
[2021-02-11] MEDS ORDERED: METOCLOPRAMIDE 10 MG TAB PO PRN (14:36)
[2021-02-11] MEDS ORDERED: ALBUTEROL 8.5 GM MDI INHALATION IH PRN (14:39)
[2021-02-11] MEDS ORDERED: LACTATED RINGERS 1,000 ML IV SCH (14:45)
[2021-02-11] MEDS ORDERED: ALBUTEROL 2.5 MG/3 ML NEBU IH PRN (14:51)
--- NOTE | 2021-02-11 15:01 | Operative Report ---
Operative Report Operative Report: Date of Service: February 11, 2021 Preoperative diagnosis: Left breast cancer of the upper outer quadrant Postoperative diagnosis: Same Procedure: Left total mastectomy with completion ALND Surgeon: Carlota Orozco M.D. Driver'S License Examiner: Angel Jha M.D. Anesthesia: Gen. 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 She completed neoadjuvant chemotherapy of TC and then Gemzar. Recommendations were for additional therapy given advanced staged breast cancer with skin involvement and she was started on Ibrance and Faslodex. At diagnosis left breast cancer mass noted for 8.3 cm and post therapy 3.[address] chest/abdomen/pelvis with no evidence of metastatic disease. Recommendations were to proceed with a left mastectomy and attempted SLNB and possible ALND; given patient with good response to therapy. She was also diagnosed with left breast cancer in 2001 Stage II and completed chemoradiation therapy and underwent and left lumpectomy and ALND. Patient not a candidate for breast conservation given prior left breast cancer history and she underwent radiation therapy; also given extent of patient's breast cancer mastectomy recommended. She wished to proceed with the above procedure. Procedure in detail: The patient was taken to the operating room and was placed supine. Gen. anesthesia was administered. The left nipple was injected with radioisotope and 1 cc of methylene blue. Known palpable left breast cancer mass at the 12:00 position 3-5 cm FN with thickened and asymmetric skin present anterior to mass. Bilateral chest and axillas were prepped and draped in the normal sterile operative fashion. Timeout was performed. Typical mastectomy incision markings were made to encompass known area of malignancy and ultrasound used as well. Attention was taken towards the left breast. A gamma probe was inserted into the axilla to identify the sentinel lymph node location with no uptake noted. A skin incision was made with a 10 blade knife and dissection taken down to the subcutaneous tissues. First began raising of the superior flap to the level of the clavicle superiorly and posteriorly to the pectoralis muscle. Followed by raising of the medial flap to the level of the sternum and posteriorly to the pectoralis muscle. Followed by raising of the lateral flap to the level of the latissimus dorsi muscle and taken down posteriorly. The gamma probe was inserted into the axilla, the axillary fascia was opened and no uptake present or blue dye present. Axillary cavity was evident of prior probable ALND with some remaining axillary contents remaining lateral to the thoracodorsal bundle. Then proceeded with raising of the inferior flap to the level of the inframammary fold taken posterior to the pectoralis muscle. The mastectomy/breast was removed from the pectoralis muscle without incident. The specimen was appropriately marked and sent to radiology with findings of breast clip present and sent to pathology. Attention was then taken towards the left axilla. First began opening of the axillary fascia further. The lattismus dorsi muscle was identified and followed superiorly. Then proceeded with identification of the axillary vein followed by identification of the thoracodorsal bundle and long thoracic nerve. The remaining axillary lymph nodes were then removed from the above boundaries with the aid of the bovie cautery in a sweeping-like motion and then sent to pathology; axillary contents present lateral to the thoracodorsal bundles. Axillary lymph nodes from level I and II were removed. Both nerves were identified and unharmed. Hemostasis was noted. The chest wall was irrigated and suctioned. Hemostasis was obtained. Then proceeded with chest wall closure. Two 19 [place] AJIT drains were placed, within the chest and axilla. The subcutaneous tissues were approximated and closed using interrupted 3-0 Vicryl. The skin was then closed using running 4-0 Monocryl followed by dermabond. She tolerated surgery very well and was awaken from anesthesia and then transported to PACU in good condition.
[2021-02-11] MEDS ORDERED: MORPHINE 2 MG/1 ML INJ IV PRN (15:30)
--- NOTE | 2021-02-11 16:18 | Post Anesthesia Evaluation ---
- Post Anesthesia Evaluation Patient Participated: Yes Airway Patent: Yes Stable Respiratory Function: Yes Nausea/Vomiting: No Temp > 96.8F: Yes Pain Manageable: Yes Adequeate Hydration: Yes Anesthesia Complications: No
[2021-02-11] MEDS: oxyCODONE /ACETAMINOPHEN 5-325MG TAB PO PRN (21:11)
[2021-02-11] MEDS: DOCUSATE SODIUM 100 MG CAP PO SCH (21:11)
[2021-02-12] MEDS: oxyCODONE /ACETAMINOPHEN 5-325MG TAB PO PRN ×2 (05:20→10:54)
[2021-02-12] MEDS: DOCUSATE SODIUM 100 MG CAP PO SCH (10:54)
--- NOTE | 2021-02-12 11:54 | Mammography Report ---
EXAMINATION: Left breast specimen radiograph, 02/11/2021 CLINICAL INFORMATION: The patient has a history of left breast cancer. COMPARISON: Diagnostic mammogram, 04/14/2020 FINDINGS: The submitted specimen radiograph from the left breast contains a spiculated density and as sociated calcifications. Signer Name: Roseann Chacko MD Signed: 02/12/2021 11:24 AM Workstation Name: [id number]
[2021-02-12 13:04] VITALS: BP 131/51
--- NOTE | 2021-02-12 13:09 | Progress Note ---
Assessment and Plan This is a 65-year-old lady with stage III/IV left breast cancer postop day 1 left total mastectomy with completion left axillary lymph node dissection. 1. No acute events overnight, pain under control. 2. Left chest wall incision healing well with no signs of infection, skin well perfused, AJIT drains to bulb suction, no hematoma. 3. AJIT drain education. 4. Up and out of bed to hallway. 5. DC planning for today. Subjective Date of service: 02/12/21 Principal diagnosis: Left breast cancer Interval history: This is a 65 year old lady with Stage III/IV left breast cancer, POD#1 left total mastectomy with completion ALND Objective - Constitutional Vitals: Vital Signs - 12hr 02/12/21 02/12/21 02/12/21 05:20 08:28 12:15 Temperature 98.1 F 98.0 F 98.9 F Pulse Rate 67 88 72 Respiratory 18 17 18 Rate Blood Pressure 135/54 Blood Pressure 135/71 131/51 [Right] O2 Sat by Pulse 93 94 92 Oximetry General appearance: Present: no acute distress - EENT Eyes: PERRL, EOM intact ENT: hearing intact, clear oral mucosa, dentition normal Ears: bilateral: normal - Neck Neck: supple, normal ROM - Respiratory Respiratory effort: normal - Breasts Breasts: other (left chest incision healing well, skin well perfused, no hematoma; AJIT drains to bulb suction) - Cardiovascular Rhythm: regular Extremities: no ischemia, pulses intact, pulses symmetrical, No edema, normal temperature, normal color - Gastrointestinal General gastrointestinal: Present: soft, non-tender, non-distended Rectal Exam: deferred - Genitourinary Female genitourinary: deferred - Integumentary Integumentary: clear, dry - Musculoskeletal Musculoskeletal: strength equal bilaterally - Neurologic Neurologic: CNII-XII intact, moves all extremities - Psychiatric Psychiatric: appropriate mood/affect, intact judgment & insight, memory intact, cooperative - Labs Labs: Abnormal lab results 02/11/21 02/11/21 Range/Units 09:41 14:49 POC Glucose 168 H 199 H (70-105) mg/dL Medications & Allergies - Medications Allergies/Adverse Reactions: Allergies No Known Allergies Allergy (Verified 12/10/18 13:01) Home Medications: Home Medications Medication Instructions Recorded Confirmed Last Taken Type Aspirin [Aspirin BABY CHEW TAB] 81 mg PO QDAY #30 tab.chew 07/28/19 02/11/21 02/04/21 09:00 Rx Palbociclib [Ibrance] 125 mg PO DAILY 09/12/20 02/11/21 02/04/21 09:00 History Albuterol Mdi (or & Nicu Only) 2 puff IH QID PRN 02/03/21 02/03/21 Unknown Hist ory [ProAir HFA Inhaler] Metformin HCl [metFORMIN] 1,000 mg PO BID 02/03/21 02/11/21 02/10/21 19:00 History [place]-3 Fatty Acids/Fish Oil [Eql 1 each PO QDAY 02/03/21 02/11/21 02/09/21 09:00 History Fish Oil 1,000 mg Softgel] Pregabalin [Lyrica] 200 mg PO BID 02/03/21 02/11/21 02/10/21 19:00 History hydrOXYzine HCL [Atarax] 25 mg PO Q8HR PRN 02/03/21 02/11/21 02/10/21 19:00 Hist ory oxyCODONE /ACETAMINOPHEN [Percocet 1 tab PO Q6HR PRN #20 tablet 02/11/21 Unknown Rx 5/325] Active Medications: Generic Name Dose Route Start Last Admin Trade Name Freq PRN Reason Stop Dose Admin Acetaminophen 650 mg 02/11/21 14:36 Acetaminophen 325 Mg Tab PO Q6H PRN Pain MILD(1-3)/Fever >100.5/SIERRA Albuterol 2.5 mg 02/11/21 14:51 Albuterol 2.5 Mg/3 Ml Nebu IH Q4HRT PRN Shortness Of Breath Diphenhydramine HCl 25 mg 02/11/21 14:36 Diphenhydramine 25 Mg Cap PO Q8H PRN Itching Docusate Sodium 100 mg 02/11/21 22:00 02/12/21 10:54 Docusate Sodium 100 Mg Cap PO 100 mg BID FARRAH Administration Hydromorphone HCl 2 mg 02/11/21 14:36 Hydromorphone 2 Mg Tab PO Q6H PRN Pain , Severe (7-10) Lactated Ringer's 1,000 mls @ 125 mls/hr 02/11/21 14:45 Lactated Ringers IV DIRECT FARRAH Metoclopramide HCl 10 mg 02/11/21 14:36 Metoclopramide 10 Mg Tab PO Q6H PRN Nausea And Vomiting Morphine Sulfate 2 mg 02/11/21 15:30 02/11/21 17:41 Morphine 2 Mg/1 Ml Inj IV 2 mg Q4H PRN Administration Pain, Moderate (4-6) Ondansetron HCl 4 mg 02/11/21 14:36 Ondansetron 4 Mg/2 Ml Inj IV Q8H PRN N/V unrelieved by Emilie Oxycodone/Acetaminophen 1 tab 02/11/21 14:36 02/12/21 10:54 Oxycodone /Acetaminophen 5-325mg Tab PO 1 tab Q6H PRN Administration Pain, Moderate (4-6) Sodium Chloride 10 ml 02/11/21 14:36 Sodium Chloride 0.9% 10 Ml Flush Syringe IV PRN PRN LINE FLUSH
[2021-02-12] MEDS ORDERED: INSULIN REGULAR, HUMAN 100 UNITS/1 ML SUB-Q SCH (14:00)
[2021-02-12] MEDS ORDERED: DEXTROSE 50% IN WATER (25GM) 50 ML SYRINGE IV PRN (14:00)
== END 2021-02-12 14:59 | disposition home or self-care (01) ==
LOC: OR 08:57 → OB 14:36
PROVIDERS: ADMIT Surgery; ATTEND Surgery
DX: C50.412 Malignant neoplasm of upper-outer quadrant of left female breast (principal); Z20.822 Contact with and (suspected) exposure to COVID-19; K21.9 Gastro-esophageal reflux disease without esophagitis; E78.5 Hyperlipidemia, unspecified; Z79.899 Other long term (current) drug therapy; Z85.3 Personal history of malignant neoplasm of breast; Z98.890 Other specified postprocedural states; Z79.82 Long term (current) use of aspirin
CPT/HCPCS: 19303; 38525; 38792; 64450; 76098; 78800; 82962; 88309; 88341; 88342; 88368; 96374; 96375; A9541; G0378; J0330; J0690; J1100; J1170; J2250; J2270; J2405; J2704; J2710; J3010; J7120; Q9968; U0003; 88307; 88333; J1815

== ENCOUNTER 2021-07-09 10:55 | Outpatient (CLI) | payer MEDICARE ==
[2021-07-09 11:52] LABS: Blood Urea Nitrogen 13 mg/dL (7-17)
--- NOTE | 2021-07-09 14:03 | Cat Scan Report ---
CT CHEST WITH CONTRAST INDICATION / CLINICAL INFORMATION: BREAST CANCER OMNI 300 100ML . TECHNIQUE: Axial CT images were obtained through the chest after 100 cc Omnipaque 300 IV contrast. Sagittal and coronal reformatted images. All CT scans at this location are performed using CT dose reduction for A DURAN by means of automated exposure control. COMPARISON: 11/12/2020 FINDINGS: HEART: No significant abnormality. THORACIC AORTA: No significant abnormality. MEDIASTINUM and ANDIE: No significant abnormality. No mediastinal adenopathy. LUNGS: No acute air space or interstitial disease. No suspicious pulmonary lesion is detected. PLEURA: No significant pleural effusion. No pneumothorax. SKELETAL SYSTEM: Mild thoracic spondylosis. No suspicious thoracic bony lesion is detected. ADDITIONAL FINDINGS: Left mastectomy changes are noted since the previous exam. IMPRESSION: Interval left mastectomy changes. No evidence for recurrent or metastatic disease in the chest. CT ABDOMEN AND PELVIS WITH CONTRAST HISTORY: BREAST CANCER OMNI 300 100ML COMPARISON: 11/12/2020 TECHNIQUE: Axial CT images were obtained through the abdomen and pelvis after 100 cc of Omnipaque 300 IV contrast. Sagittal and coronal reformatted images. All CT scans at this location are performed us ing CT dose reduction for ALARA by means of automated exposure control. FINDINGS: CT ABDOMEN: Liver: Stable hepatic steatosis. No suspicious liver lesion is detected. Biliary: No significant abnormality. Spleen: No significant abnormality. Unenlarged. Pancreas: No significant abnormality. Adrenals: Mild thickening of both adrenal glands is again seen without discrete nodule. This may repr esent hyperplasia. Kidneys: No significant abnormality. Lymphatics: No lymphadenopathy. Vasculature: Moderate diffuse atherosclerotic disease throughout the abdominal aorta and iliac arteri es is again seen. No aneurysm. Bowel/Peritoneum: No significant abnormality. No free air. No free fluid. Normal appendix. CT PELVIS: : The uterus, adnexa and bladder are unremarkable. Osseous Structures: Stable mild lumbar spondylosis. No suspicious bony lesion is detected. Additional Findings: None IMPRESSION: Stable findings in the abdomen and pelvis with no evidence for metastatic disease. Hepatic steatosis. Signer Name: Clayton Goncalves Jr, MD Signed: 07/09/2021 1:59 PM Workstation Name: [id number]
== END 2021-07-09 10:56 | disposition home or self-care (01) ==
LOC: CT 10:55
PROVIDERS: ATTEND Internal Medicine Hematology & Oncology
DX: C50.912 Malignant neoplasm of unspecified site of left female breast (principal); K76.0 Fatty (change of) liver, not elsewhere classified; I70.0 Atherosclerosis of aorta; M47.814 Spondylosis without myelopathy or radiculopathy, thoracic region; Z90.12 Acquired absence of left breast and nipple
CPT/HCPCS: 36415; 71260; 74177; 82565; 84520; Q9967